=== PATIENT | female | born 1995 | race Caucasian/White ===

== ENCOUNTER 2018-12-12 15:44 | Emergency (ER) | payer OTHER ==
--- NOTE | 2018-12-12 16:47 | ED Physician Documentation ---
PD HPI URI - Stated complaint Stated Complaint: FLU SYMPTOMS - Chief complaint Chief Complaint: Fever - History obtained from History obtained from: Patient, Family - History of Present Illness Timing - onset: How many days ago (3) Timing duration: Days (3) Timing details: Gradual onset Pain level max: 4 Pain level now: 3 Associated symptoms: Fever, Chills, Nasal congestion, Rhinorrhea, Dry cough, Chest pain (with coughing). No: Dyspnea, NVD Contributing factors: Sick contact. No: Immunocompromised, Unimmunized, COPD / asthma Improves by: Rest, Medication (motrin/tylenol) Worsened by: Activity, Breathing Similar symptoms before: Has not had sx before Recently seen: Not recently seen Review of Systems Constitutional: reports: Fever, Chills Respiratory: reports: Cough GI: denies: Vomiting : denies: Now EGA PD PAST MEDICAL HISTORY - Past Medical History Past Medical History: No - Past Surgical History Past Surgical History: No - Present Medications Home Medications: Ambulatory Orders Medication Instructions Recorded Confirmed Benzonatate [Tessalon Perle] 100 - 200 mg PO TID PRN #30 capsule 12/12/18 Ibuprofen [Motrin] 800 mg PO Q8H PRN #30 tablet 12/12/18 - Allergies Allergies/Adverse Reactions: Allergies Allergy/AdvReac Type Severity Reaction Status Date / Time No Known Drug Allergies Allergy Verified 12/12/18 16:09 - Living Situation Living Situation: reports: With family Living Arrangement: reports: At home - Social History Does the pt smoke?: No Does the pt drink ETOH?: No Does the pt have substance abuse?: No - Family History Family history: reports: Non contributory PD ED PE NORMAL - Vitals Vital signs reviewed: Yes - General General: Alert and oriented X 3, No acute distress, Well developed/nourished - HEENT HEENT: PERRL, Ears normal, Moist mucous membranes, Pharynx benign - Neck Neck: Supple, no meningeal sign, No adenopathy - Cardiac Cardiac: RRR, Strong equal pulses - Respiratory Respiratory: No respiratory distress, Clear bilaterally - Abdomen Abdomen: Soft, Non tender, Non distended - Derm Derm: Warm and dry - Neuro Neuro: Alert and oriented X 3 - Psych Psych: Normal mood, Normal affect Results - Vitals Vitals: Vital Signs - 24 hr 12/12/18 12/12/18 16:07 16:51 Temperature 38.1 C H 38.2 C H Heart Rate 127 H Respiratory 14 20 Rate Blood Pressure 140/89 H 132/90 H O2 Saturation 96 Oxygen O2 Source Room air PD MEDICAL DECISION MAKING - ED course Complexity details: considered differential, d/w patient ED course: 22-year-old female presents to the emergency department with symptoms consistent with influenza which is currently rampant in the community. She is very well- appearing, nontoxic. No hypoxia. No evidence of pneumonia. No evidence of sepsis. Patient counseled regarding signs and symptoms for which I believe and urgent re-evaluation would be necessary. Patient with good understanding of and agreement to plan and is comfortable going home at this time This document was made in part using voice recognition software. While efforts are made to proofread this document, sound alike and grammatical errors may occur. Departure - Departure Disposition: 01 Home, Self Care Clinical Impression: Influenza A Condition: Good Instructions: ED Flu Follow-Up: your,doctor in 1 week [Other] Prescriptions: Benzonatate [Tessalon Perle] 100 - 200 mg PO TID PRN #30 capsule PRN Reason: Cough Ibuprofen [Motrin] 800 mg PO Q8H PRN #30 tablet PRN Reason: PAIN &/OR FEVER Comments: Drink plenty of fluids and rest. Return if you worsen. Follow-up with your doctor for further care. Forms: Activity restrictions Discharge Date/Time: 12/12/18 16:55
[2018-12-12 16:53] VITALS: BP 132/90
== END 2018-12-12 16:55 | disposition home or self-care (01) ==
LOC: ED 15:44
DX: J10.1 Influenza due to other identified influenza virus with other respiratory manifestations (principal)
CPT/HCPCS: 99283

== ENCOUNTER 2021-02-14 12:16 | Emergency (ER) | payer OTHER ==
--- NOTE | 2021-02-14 13:29 | ED Physician Documentation ---
PD HPI HEENT - Stated complaint Stated Complaint: ear px - Chief complaint Chief Complaint: Heent - History obtained from History obtained from: Patient - History of Present Illness Timing - onset: How many weeks ago (2) Timing - duration: Weeks (2) Timing - details: Gradual onset, Still present, Waxing and waning (becoming more consistent with diminished hearing since yesterday.) Location: Right ear, Left ear. No: Nose Associated symptoms: No: Fever, Congestion, Headache Similar symptoms before: Diagnosis (earwax impaction at times in the past.) Review of Systems Constitutional: denies: Fever, Chills Ears: reports: Loss of hearing (mostly the left one), Ear pain. denies: Tinnitus/ringing, Foreign body Nose: denies: Rhinorrhea / runny nose, Congestion Throat: denies: Sore throat Respiratory: denies: Cough Skin: denies: Rash, Lesions Neurologic: reports: Other (no vertigo). 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 : None HEENT: None Psych: None Musculoskeletal: None Derm: None - Past Surgical History Past Surgical History: Yes General: Appendectomy Ortho: Other Neuro: Craniotomy HEENT: Other - Present Medications Home Medications: Ambulatory Orders Medication Instructions Recorded Confirmed Cetirizine [ZyrTEC] 10 mg PO BID #20 tablet 02/14/21 Neomycin/Polymyx/Hc Otic Drops 4 drops EACHEAR TID 4 Days #10 ml 02/14/21 [Cortisporin Ear Susp] - Allergies Allergies/Adverse Reactions: Allergies Allergy/AdvReac Type Severity Reaction Status Date / Time No Known Drug Allergies Allergy Verified 02/14/21 12:29 - Social History Does the pt smoke?: Yes Smoking Status: Current every day smoker Does the pt drink ETOH?: Yes Does the pt have substance abuse?: No - Immunizations Immunizations are current?: Yes PD ED PE NORMAL - Vitals Vital signs reviewed: Yes - General General: Alert and oriented X 3, No acute distress, Well developed/nourished - HEENT HEENT: Pharynx benign, Other (both ears with impacted cerumen, not being able to see any of the TM. ) - Neck Neck: Supple, no meningeal sign, No adenopathy - Cardiac Cardiac: RRR, No murmur - Respiratory Respiratory: Clear bilaterally - Derm Derm: Normal color, Warm and dry Results - Vitals Vitals: Vital Signs - 24 hr 02/14/21 02/14/21 02/14/21 12:25 15:11 15:23 Temperature 37.1 C 36.4 C L 36.6 C Heart Rate 99 77 75 Respiratory 20 17 16 Rate Blood Pressure 142/81 H 131/88 H 130/75 O2 Saturation 97 100 100 Oxygen O2 Source Room air PD MEDICAL DECISION MAKING - ED course Complexity details: re-evaluated patient (checked after cerumen irrigated out, and medial canal both sides with redness/rawness. TM themselves without infection behind. ), considered differential (impacted cerumen, and I did currette some of it out/looser, so flushing more effective. ), d/w patient Departure - Departure Disposition: 01 Home, Self Care Clinical Impression: Cerumen impaction Qualifiers: Laterality: bilateral Qualified Code(s): H61.23 - Impacted cerumen, bilateral Otitis externa Qualifiers: Otitis externa type: unspecified type Chronicity: acute Laterality: bilateral Qualified Code(s): H60.503 - Unspecified acute noninfective otitis externa, bilateral Condition: Stable Record reviewed to determine appropriate education?: Yes Instructions: ED Otitis Externa Prescriptions: Neomycin/Polymyx/Hc Otic Drops [Cortisporin Ear Susp] 4 drops EACHEAR TID 4 Days #10 ml Cetirizine [ZyrTEC] 10 mg PO BID #20 tablet Comments: Earwax is out of your ears and has created irritation of the ear canal behind it. Use the antibiotic eardrops 3 times a day over the next several days to clear that. Also use cetirizine antihistamine twice daily for the next 7 to 10 days for congestion. Tylenol every 4-6 hours if needed for pains. I would anticipate improvement over the next day or 2. Discharge Date/Time: 02/14/21 15:24
[2021-02-14] MEDS ORDERED: ACETAMINOPHEN 325 MG TABLET PO STA (13:45)
[2021-02-14 15:24] VITALS: BP 130/75
== END 2021-02-14 15:24 | disposition home or self-care (01) ==
LOC: ED 12:16
DX: H60.503 Unspecified acute noninfective otitis externa, bilateral (principal); H61.23 Impacted cerumen, bilateral; F17.200 Nicotine dependence, unspecified, uncomplicated
CPT/HCPCS: 69210; 99282; 99284; A9270

== ENCOUNTER 2021-04-21 13:10 | Outpatient (CLI) | payer MEDICAID ==
[2021-04-21 17:43] LABS: BASOPHILS % (AUTO) 0.4 %; EOSINOPHILS # (AUTO) 0.3 10^3/uL (0.0-0.7); HCT - HEMATOCRIT 40.4 % (37.0-47.0); HGB - HEMOGLOBIN 12.7 g/dL (12.0-16.0); LYMPHOCYTES % (AUTO) 26.1 %; MEAN CORPUSCULAR HEMOGLOBIN 29.6 pg (27.0-31.0); MEAN CORPUSCULAR HGB CONC 31.4 g/dL (32.0-36.0); MEAN CORPUSCULAR VOLUME 94.2 fL (81.0-99.0); MEAN PLATELET VOLUME 11.5 fL (7.9-10.8); MONOCYTES # (AUTO) 0.4 10^3/uL (0.0-1.0); MONOCYTES % (AUTO) 5.7 %; NEUTROPHILS # (AUTO) 4.9 10^3/uL (1.5-6.6); NEUTROPHILS % (AUTO) 63.7 %; PLT - PLATELET COUNT 301 10^3/uL (130-450); RED BLOOD COUNT 4.29 10^6/uL (4.20-5.40); RED CELL DISTRIBUTION WIDTH 12.6 % (12.0-15.0); WHITE BLOOD COUNT 7.7 x10^3/uL (4.8-10.8)
[2021-04-21 17:55] LABS: ALBUMIN 4.2 g/dL (3.2-5.5); ALBUMIN/GLOBULIN RATIO 1.2 (1.0-2.2); BILIRUBIN,TOTAL 0.7 mg/dL (0.2-1.0); CALCIUM 9.3 mg/dL (8.5-10.3); CREATININE 0.6 mg/dL (0.4-1.0); TOTAL PROTEIN 7.6 g/dL (6.7-8.2)
== END 2021-04-21 13:11 | disposition home or self-care (01) ==
LOC: LAB.N 13:10
PROVIDERS: ATTEND Registered Nurse
DX: R63.5 Abnormal weight gain (principal); Z83.3 Family history of diabetes mellitus
CPT/HCPCS: 36415; 80053; 84443; 85025

== ENCOUNTER 2021-07-22 17:08 | Emergency (ER) | payer MEDICAID ==
[2021-07-22 17:30] VITALS: BP 132/88
--- NOTE | 2021-07-22 17:57 | ED Physician Documentation ---
PD HPI URI - Stated complaint Stated Complaint: COUGH,SORE THROAT - Chief complaint Chief Complaint: Resp - History obtained from History obtained from: Patient - Additional information Additional information: 25-year-old female who presented with 3 days of cough and sore throat. She has missed a several days of work in states she needs a note in order to explain her absence. She is not vaccinated for Covid, no known sick contacts. She has not had a fever, chills, chest pain or dyspnea, abdominal pain, nausea vomiting or diarrhea. Taking [id number] cough and cold medicine with some relief. 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 HEENT: None Psych: None Musculoskeletal: None Derm: None - Past Surgical History Past Surgical History: Yes General: Appendectomy Ortho: Other Neuro: Craniotomy HEENT: Other - Present Medications Home Medications: Ambulatory Orders Medication Instructions Recorded Confirmed Amoxicillin 1,000 mg PO DAILY 10 Days #20 cap 07/22/21 - Allergies Allergies/Adverse Reactions: Allergies Allergy/AdvReac Type Severity Reaction Status Date / Time No Known Drug Allergies Allergy Verified 07/22/21 17:28 - Social History Does the pt smoke?: Yes Smoking Status: Current every day smoker Does the pt drink ETOH?: Yes Does the pt have substance abuse?: No - Immunizations Immunizations are current?: Yes PD ED PE NORMAL - Vitals Vital signs reviewed: Yes - General General: Alert and oriented X 3, No acute distress, Well developed/nourished - HEENT HEENT: Atraumatic, Ears normal, Moist mucous membranes, Pharynx benign, Other (Throat is slightly red, tonsils 1+ bilateral uvula midline no exudate) - Neck Neck: Supple, no meningeal sign, No JVD - Cardiac Cardiac: RRR, No murmur - Respiratory Respiratory: No respiratory distress, Clear bilaterally - Abdomen Abdomen: Normal bowel sounds, Soft, Non tender, Non distended - Derm Derm: Normal color, Warm and dry - Extremities Extremities: No deformity, No tenderness to palpate, Normal ROM s pain - Neuro Neuro: Alert and oriented X 3 Eye Opening: Spontaneous Motor: Obeys Commands Verbal: Oriented GCS Score: 15 - Psych Psych: Normal mood, Normal affect Results - Vitals Vitals: Vital Signs - 24 hr 07/22/21 17:26 Temperature 36.6 C Heart Rate 95 Respiratory 16 Rate Blood Pressure 132/88 H O2 Saturation 96 Oxygen O2 Source Room air - Labs Labs: Laboratory Tests 07/22/21 18:18 Group A Strep Rapid POSITIVE H PD MEDICAL DECISION MAKING - ED course Complexity details: reviewed results, d/w patient ED course: 25-year-old female who presented with Throat, her strep test was positive and amoxicillin was sent in to [facility] in [place] for the patient. I reviewed supportive measures including Tylenol, ibuprofen, staying well-hydrated. Patient stay home from work for 24 hours after starting antibiotics. We did obtain a Covid test as well which is still pending, patient will be notified of the results in 24 to 48 hours. Departure - Departure Disposition: 01 Home, Self Care Clinical Impression: Strep throat Condition: Good Instructions: ED Viral Syndrome Prescriptions: Amoxicillin 1,000 mg PO DAILY 10 Days #20 cap Forms: Activity restrictions Discharge Date/Time: 07/22/21 18:38
[2021-07-22 18:35] LABS: RAPID STREP SCREEN POSITIVE (Negative)
== END 2021-07-22 18:38 | disposition home or self-care (01) ==
LOC: ED 17:08
DX: J02.0 Streptococcal pharyngitis (principal); F17.200 Nicotine dependence, unspecified, uncomplicated; Z20.822 Contact with and (suspected) exposure to COVID-19
CPT/HCPCS: 87430; 99283; 99284

== ENCOUNTER 2022-03-01 17:19 | Emergency (ER) | payer BC, MEDICAID ==
[2022-03-01] MEDS ORDERED: SODIUM CHLORIDE 0.9% 1,000 ML IV STA (18:12)
--- NOTE | 2022-03-01 19:01 | ED Physician Documentation ---
History of Present Illness - Stated complaint Stated Complaint: RUNNY NOSE,CHILLS,SORE THROAT - Chief complaint Chief Complaint: General - History obtained from History obtained from: Patient - Additonal information Additional information: The patient comes to the emergency department chief complaint of fevers, chills, sore throat, cough, and fatigue over the last couple of days. She is also had a headache. She states her temperatures were measured orally and as high as 102 today. She has not had any sick contacts that she knows of. She is not COVID vaccinated. Patient denies any nausea or vomiting. No diarrhea. No dysuria. No shortness of breath. No other complaints at this time. Review of Systems Ten Systems: 10 systems reviewed and negative Constitutional: reports: Fever, Chills, Fatigue Eyes: reports: Reviewed and negative Ears: reports: Reviewed and negative Nose: reports: Rhinorrhea / runny nose, Congestion Throat: reports: Sore throat Cardiac: reports: Reviewed and negative Respiratory: reports: Cough GI: reports: Reviewed and negative : reports: Reviewed and negative Skin: reports: Reviewed and negative Musculoskeletal: reports: Reviewed and negative Neurologic: reports: Headache Psychiatric: reports: Reviewed and negative Endocrine: reports: Reviewed and negative Immunocompromised: reports: Reviewed and negative PD PAST MEDICAL HISTORY - Past Medical History Past Medical History: Yes Cardiovascular: None Respiratory: None Neuro: None Endocrine/Autoimmune: None 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 HEENT: None Psych: None Musculoskeletal: None Derm: None - Past Surgical History Past Surgical History: Yes General: Appendectomy Ortho: Other Neuro: Craniotomy HEENT: Other - Present Medications Home Medications: Ambulatory Orders Medication Instructions Recorded Confirmed No Known Home Medications 03/01/22 03/01/22 - Allergies Allergies/Adverse Reactions: Allergies Allergy/AdvReac Type Severity Reaction Status Date / Time No Known Drug Allergies Allergy Verified 03/01/22 17:24 - Social History Does the pt smoke?: Yes Smoking Status: Current every day smoker Does the pt drink ETOH?: Yes Does the pt have substance abuse?: No - Immunizations Immunizations are current?: Yes PD ED PE NORMAL - Vitals Vital signs reviewed: Yes - General General: Alert and oriented X 3, No acute distress, Well developed/nourished - HEENT HEENT: Atraumatic, PERRL, EOMI, Moist mucous membranes, Pharynx benign - Neck Neck: Supple, no meningeal sign - Cardiac Cardiac: RRR, No murmur, Strong equal pulses - Respiratory Respiratory: No respiratory distress, Clear bilaterally - Abdomen Abdomen: Soft, Non tender, Non distended - Derm Derm: Normal color, Warm and dry, No rash - Extremities Extremities: No deformity - Neuro Neuro: Alert and oriented X 3, 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 At this point in time, she is pending finishing her IV fluids and the results of the PCR panel. She is signed out to Dr. Solano at change of shift pending final disposition. Departure - Departure Clinical Impression: Viral syndrome Condition: Stable Instructions: ED Viral Syndrome
[2022-03-01 19:17] LABS: CORONAVIRUS 229E-RESP PCR NOT DETECTED; CORONAVIRUS HKU1-RESP PCR NOT DETECTED; CORONAVIRUS NL63-RESP PCR NOT DETECTED; CORONAVIRUS OC43-RESP PCR DETECTED
[2022-03-01 19:18] LABS: B. PARAPERTUSSIS- RESP PCR PAN NOT DETECTED; B. PERTUSSIS- RESP PCR PANEL NOT DETECTED; C. PNEUMONIAE- RESP PCR PANEL NOT DETECTED; HUMAN METAPNEUMOVIRUS NOT DETECTED; INFLUENZA A- RESP PCR PANEL NOT DETECTED; INFLUENZA B - RESP PCR PANEL NOT DETECTED; M. PNEUMONIAE- RESP PCR PANEL NOT DETECTED; PARAINFLUENZA VIRUS 1 NOT DETECTED; PARAINFLUENZA VIRUS 2 NOT DETECTED; PARAINFLUENZA VIRUS 3 NOT DETECTED; PARAINFLUENZA VIRUS 4 NOT DETECTED; RHINOVIRUS/ENTEROVIRUS NOT DETECTED; RSV- RESP PCR PANEL NOT DETECTED; SARS-CoV-2 -RESP PCR PANEL NOT DETECTED
[2022-03-01 20:07] VITALS: BP 151/98
== END 2022-03-01 20:11 | disposition home or self-care (01) ==
LOC: ED 17:19
DX: B34.9 Viral infection, unspecified (principal); F17.200 Nicotine dependence, unspecified, uncomplicated; Z20.822 Contact with and (suspected) exposure to COVID-19
CPT/HCPCS: 87633; 99282; 99283

== ENCOUNTER 2022-04-04 09:28 | Emergency (ER) | payer BC ==
--- NOTE | 2022-04-04 10:05 | ED Physician Documentation ---
History of Present Illness - Stated complaint Stated Complaint: CHILLS,FEVER - Chief complaint Chief Complaint: Fever - History obtained from History obtained from: Patient - Additonal information Additional information: The patient comes to the emergency department chief complaint of fever. She states she was not feeling very well yesterday and felt as though her stomach was churning. She was at work and then noticed that her head was pounding And she had body aches. Patient states she came home and took her temperature which came throughout 103. She was in front of the heater at that time and also just taken a hot shower. She went to bed and states that her head hurt all night and that this morning, she had a temperature of 101. She did not take any ibuprofen or Tylenol for this. The patient states that her stomach feels better today. Her headache is a little better now she is afebrile here. Patient does not know of any sick contacts but states this is her third time being sick with something this year. She states she has not had COVID. The patient has a roommate who has not been sick. No sore throat. Minimal cough. No dysuria or back pain. No vomiting or diarrhea. No abdominal pain. Review of Systems Ten Systems: 10 systems reviewed and negative Constitutional: reports: Fever, Myalgias Eyes: reports: Reviewed and negative Ears: reports: Reviewed and negative Nose: reports: Reviewed and negative Throat: reports: Reviewed and negative Cardiac: reports: Reviewed and negative Respiratory: reports: Reviewed and negative GI: reports: Nausea (Now resolved) : reports: Reviewed and negative Skin: reports: Reviewed and negative Musculoskeletal: reports: Reviewed and negative Neurologic: reports: Reviewed and negative Psychiatric: reports: Reviewed and negative Endocrine: reports: Reviewed and negative Immunocompromised: reports: Reviewed and negative PD PAST MEDICAL HISTORY - Past Medical History Cardiovascular: None Respiratory: None Neuro: None Endocrine/Autoimmune: None GI: None 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 : None HEENT: None Psych: None Musculoskeletal: None Derm: None - Past Surgical History Past Surgical History: Yes General: Appendectomy Ortho: Other Neuro: Craniotomy HEENT: Other - Present Medications Home Medications: Ambulatory Orders Medication Instructions Recorded Confirmed No Known Home Medications 03/01/22 04/04/22 - Allergies Allergies/Adverse Reactions: Allergies Allergy/AdvReac Type Severity Reaction Status Date / Time No Known Drug Allergies Allergy Verified 04/04/22 09:47 - Social History Does the pt smoke?: Yes Smoking Status: Current every day smoker Does the pt drink ETOH?: Yes Does the pt have substance abuse?: No - Immunizations Immunizations are current?: Yes PD ED PE NORMAL - Vitals Vital signs reviewed: Yes - General General: Alert and oriented X 3, No acute distress, Well developed/nourished, Other (The patient is animated and well-appearing) - HEENT HEENT: Atraumatic, PERRL, EOMI, Moist mucous membranes, Pharynx benign - Neck Neck: Supple, no meningeal sign, No adenopathy - Cardiac Cardiac: RRR, No murmur, Strong equal pulses - Respiratory Respiratory: No respiratory distress, Clear bilaterally - Abdomen Abdomen: Soft, Non tender, Non distended - Derm Derm: Normal color, Warm and dry, No rash - Extremities Extremities: No deformity - Neuro Neuro: Alert and oriented X 3 - Psych Psych: Normal mood, Normal affect Results - Vitals Vitals: Vital Signs - 24 hr 04/04/22 09:37 Temperature 36.9 C Heart Rate 97 Respiratory 18 Rate Blood Pressure 131/80 H O2 Saturation 99 Oxygen O2 Source Room air PD MEDICAL DECISION MAKING - ED course Complexity details: reviewed results, considered differential, d/w patient ED course: Patient overall appeared fairly well and I discussed with her that most likely, she has one of the many viral illnesses that are going around right now. I have sent a viral swab and patient will be notified at home if positive. We have discussed symptomatic management at home and the usual indications for return Departure - Departure Disposition: 01 Home, Self Care Clinical Impression: Viral syndrome, Febrile illness, acute Condition: Stable Instructions: ED Viral Syndrome Comments: You do not have any evidence of a bacterial infection. Given that you measured a fever both last night and this morning, in addition to the other symptoms you have been having, you most likely have one of the many viruses that are going around right now. A viral panel has been sent and will be back in a few hours. We will call you at home with any positive results. However, if you would like to monitor for negative results, you may go to our website at [email or web address], click on the "my [employer]" tab, and sign up for the patient portal. In the meantime, you may take ibuprofen 600 mg every 6 hours and or Tylenol 650 mg every Headache4 hours, as needed for, aches, or fever. Ibuprofen and Tylenol are unrelated and may be taken at the same time. Please drink plenty of fluids and get rest today. Please follow-up with your doctor if you are not feeling better in the next week.
[2022-04-04 10:15] VITALS: BP 125/75
[2022-04-04 11:29] LABS: B. PARAPERTUSSIS- RESP PCR PAN NOT DETECTED; B. PERTUSSIS- RESP PCR PANEL NOT DETECTED; C. PNEUMONIAE- RESP PCR PANEL NOT DETECTED; CORONAVIRUS 229E-RESP PCR NOT DETECTED; CORONAVIRUS HKU1-RESP PCR NOT DETECTED; CORONAVIRUS NL63-RESP PCR NOT DETECTED; CORONAVIRUS OC43-RESP PCR NOT DETECTED; HUMAN METAPNEUMOVIRUS NOT DETECTED; INFLUENZA A- RESP PCR PANEL NOT DETECTED; INFLUENZA B - RESP PCR PANEL NOT DETECTED; M. PNEUMONIAE- RESP PCR PANEL NOT DETECTED; PARAINFLUENZA VIRUS 1 NOT DETECTED; PARAINFLUENZA VIRUS 2 NOT DETECTED; PARAINFLUENZA VIRUS 3 NOT DETECTED; PARAINFLUENZA VIRUS 4 NOT DETECTED; RHINOVIRUS/ENTEROVIRUS NOT DETECTED; RSV- RESP PCR PANEL NOT DETECTED
[2022-04-04 11:32] LABS: SARS-CoV-2 -RESP PCR PANEL DETECTED
== END 2022-04-04 10:17 | disposition home or self-care (01) ==
LOC: ED 09:28
DX: F17.200 Nicotine dependence, unspecified, uncomplicated (principal); U07.1 COVID-19
CPT/HCPCS: 87633; 99282; 99283

== ENCOUNTER 2023-10-05 13:25 | Emergency (ER) | payer BC ==
[2023-10-05 13:32] VITALS: BP 140/90; O2SAT 100
--- NOTE | 2023-10-05 14:23 | ED Physician Documentation ---
PD HPI HEENT - Stated complaint Stated Complaint: LT EAR PX - Chief complaint Chief Complaint: Heent - History obtained from History obtained from: Patient - History of Present Illness Timing - onset: How many days ago (2) Timing - duration: Days (2) Timing - details: Gradual onset, Still present Location: Left ear Improves: Other (she thought maybe wax impaction so used ear wax hat cleaner without improvement.). No: Medication Worsens: Position Associated symptoms: Congestion. No: Fever, Headache Review of Systems Constitutional: denies: Fever Ears: reports: Loss of hearing, Ear pain. 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 HEENT: None Psych: None Musculoskeletal: None Derm: None - Past Surgical History Past Surgical History: Yes General: Appendectomy Ortho: Other Neuro: Craniotomy HEENT: Other - Present Medications Home Medications: Ambulatory Orders Medication Instructions Recorded Confirmed Amoxicillin 500 mg PO TID #21 cap 10/05/23 Cetirizine [ZyrTEC] 10 mg PO BID #15 tablet 10/05/23 Ibuprofen [Motrin] 600 mg PO TID PRN #25 tab 10/05/23 - Allergies Allergies/Adverse Reactions: Allergies Allergy/AdvReac Type Severity Reaction Status Date / Time No Known Drug Allergies Allergy Verified 10/05/23 13:28 - Social History Does the pt smoke?: Yes Smoking Status: Current every day smoker Does the pt drink ETOH?: Yes Does the pt have substance abuse?: No - Immunizations Immunizations are current?: Yes PD ED PE NORMAL - Vitals Vital signs reviewed: Yes - General General: Alert and oriented X 3, Well developed/nourished - HEENT HEENT: Moist mucous membranes, Pharynx benign. No: Ears normal (right with some wax in canal but TM is okay. Left with nearly no wax. Canal appears okay. TM with redness, swelling and distorted landmarks. ) Results - Vitals Vitals: Vital Signs - 24 hr 10/05/23 13:29 Temperature 36.5 C Heart Rate 80 Respiratory 16 Rate Blood Pressure 140/90 H O2 Saturation 100 Oxygen O2 Source Room air PD Medical Decision Making - ED course Complexity details: considered differential (ear pain and less hearing. Canal is clear of wax. TM with OM. ), d/w patient Departure - Departure Disposition: 01 Home, Self Care Clinical Impression: Left ear pain, Otitis media Condition: Stable Record reviewed to determine appropriate education?: Yes Instructions: ED Otitis Media Acute Adult Prescriptions: Amoxicillin 500 mg PO TID #21 cap Ibuprofen [Motrin] 600 mg PO TID PRN #25 tab PRN Reason: Pain Cetirizine [ZyrTEC] 10 mg PO BID #15 tablet Comments: Your ear canal has essentially no earwax in it. You have done a good job of clearing it out. However I do not think that was what was causing your pain. You do have an ear infection with redness and swelling and fluid behind the eardrum. This would have resulted more from the head cold you have been having recently. Amoxicillin 3 times a day for the next week. Ibuprofen 2-3 times a day for pain and inflammation. We also want to get the fluid out from the eustachian tube and sinuses so cetirizine twice daily for the next week. I would anticipate improvement over the next few days and resolution by 3 to 5 days. I sent your prescriptions to preferred pharmacy. Recheck if not improving well over the next few days and return if worse. Forms: PCP List Discharge Date/Time: 10/05/23 14:54
[2023-10-05] MEDS ORDERED: IBUPROFEN 600 MG TABLET PO STA (14:46)
[2023-10-05] MEDS ORDERED: AMOXICILLIN 250 MG CAPSULE PO STA (14:46)
== END 2023-10-05 14:54 | disposition home or self-care (01) ==
LOC: ED 13:25
DX: H66.92 Otitis media, unspecified, left ear (principal); F17.200 Nicotine dependence, unspecified, uncomplicated
CPT/HCPCS: 99282; 99283; A9270

== ENCOUNTER 2024-05-03 09:10 | Inpatient (IN) | payer BC ==
[2024-05-03 09:37] LABS: BASOPHILS # (AUTO) 0.1 10^3/uL (0.0-0.1); EOSINOPHILS % (AUTO) 0.2 %; HCT - HEMATOCRIT 41.6 % (37.0-47.0); LYMPHOCYTES # (AUTO) 1.3 10^3/uL (1.5-3.5); LYMPHOCYTES % (AUTO) 22.3 %; MEAN CORPUSCULAR HEMOGLOBIN 25.8 pg (27.0-31.0); MEAN CORPUSCULAR HGB CONC 31.3 g/dL (32.0-36.0); MEAN CORPUSCULAR VOLUME 82.7 fL (81.0-99.0); MEAN PLATELET VOLUME 10.4 fL (7.9-10.8); MONOCYTES # (AUTO) 0.4 10^3/uL (0.0-1.0); MONOCYTES % (AUTO) 6.1 %; NEUTROPHILS # (AUTO) 4.1 10^3/uL (1.5-6.6); NEUTROPHILS % (AUTO) 69.9 %; PLT - PLATELET COUNT 336 10^3/uL (130-450); RED BLOOD COUNT 5.03 10^6/uL (4.20-5.40); RED CELL DISTRIBUTION WIDTH 15.6 % (12.0-15.0); WHITE BLOOD COUNT 5.9 x10^3/uL (4.8-10.8)
[2024-05-03 09:47] LABS: BILIRUBIN,URINE SMALL (NEGATIVE); GLUCOSE, URINE (UA) NEGATIVE (NEGATIVE); KETONES,URINE (UA) TRACE mg/dL (NEGATIVE); LEUKOCYTE ESTERASE, URINE NEGATIVE (NEGATIVE); NITRITE,URINE NEGATIVE (NEGATIVE); OCCULT BLOOD,URINE LARGE (NEGATIVE); PROTEIN,URINE 30 mg/dL (NEGATIVE); UROBILINOGEN,URINE 1 (NORMAL) E.U./dL (NORMAL)
[2024-05-03 09:51] LABS: CLARITY,URINE CLEAR (CLEAR); HCG UR QUAL NEGATIVE
[2024-05-03 09:52] LABS: ALBUMIN 4.6 g/dL (3.2-5.5); ALBUMIN/GLOBULIN RATIO 1.5 (1.0-2.2); ALKALINE PHOSPHATASE 63 IU/L (42-121); ALT ALANINE AMINOTRANSFERASE 165 IU/L (10-60); AST ASPARTATE AMINOTRANSFERASE 226 IU/L (10-42); BILIRUBIN,TOTAL 0.9 mg/dL (0.2-1.0); BUN - BLOOD UREA NITROGEN 7 mg/dL (6-20); CALCIUM 9.9 mg/dL (8.5-10.3); CARBON DIOXIDE - CO2 27 mmol/L (21-32); CHLORIDE 97 mmol/L (101-111); CREATININE 0.7 mg/dL (0.6-1.3); ETOH - ETHANOL 10.4 mg/dL; GFR - MDRD 98 (>89); GLUCOSE 188 mg/dL (74-104); LIPASE 22 U/L (11-82); MAGNESIUM 1.4 mg/dL (1.7-2.3); POTASSIUM 2.9 mmol/L (3.5-4.5); SODIUM 133 mmol/L (135-145); TOTAL PROTEIN 7.6 g/dL (6.4-8.9)
[2024-05-03 09:56] LABS: PARTIAL THROMBOPLASTIN TIME 26.2 secs (24.9-33.3)
[2024-05-03 09:57] LABS: BACTERIA,URINE Many /HPF (None Seen); RBC,URINE TNTC /HPF (0-5); SQUAMOUS EPITHELIAL CELL,UR MANY Squamous (<= Few); WBC,URINE 0-3 /HPF (0-5)
[2024-05-03 10:01] LABS: INR 1.4 (0.8-1.2); PT - PROTHROMBIN TIME 14.9 secs (9.9-12.6)
[2024-05-03 10:02] LABS: ACETAMINOPHEN 60.8 ug/mL; SALICYLATE < 1.5 mg/dL
[2024-05-03 10:07] LABS: THYROID STIMULATING HORMONE 1.15 uIU/mL (0.34-5.60)
[2024-05-03 10:20] LABS: AMPHETAMINE SCREEN,URINE NEGATIVE (NEGATIVE); BARBITURATE SCREEN,UR NEGATIVE (NEGATIVE); BENZODIAZEPINES SCREEN, URINE POSITIVE (NEGATIVE); BUPRENORPHINE SCREEN, URINE NEGATIVE (NEGATIVE); COCAINE SCREEN URINE NEGATIVE (NEGATIVE); METHADONE SCREEN, URINE NEGATIVE (NEGATIVE); METHAMPHETAMINES SCREEN, URINE NEGATIVE (NEGATIVE); OPIATE SCREEN, URINE NEGATIVE (NEGATIVE); OXYCODONE SCREEN, URINE NEGATIVE (NEGATIVE); THC CANNABINOID SCREEN, URINE NEGATIVE (NEGATIVE); TRICYCLIC ANTIDEPRESSANT,URINE NEGATIVE (NEGATIVE)
[2024-05-03] MEDS: ACETYLCYSTEINE IV STA (10:24)
[2024-05-03] MEDS: DEXTROSE 5% IV STA (10:24)
--- NOTE | 2024-05-03 10:43 | ED Physician Documentation ---
PD HPI MHE - Stated complaint Stated Complaint: SI - Chief complaint Chief Complaint: MHE - History obtained from History obtained from: Patient - History of Present Illness Primary symptom: Suicide attempt Timing - onset: Last night (2099) Contributing factors: Work Recently seen: Not recently seen - Additional information Additional information: 28-year-old female presents to the emergency department stating she has had increasing anxiety and and was feeling suicidal last night. She states she decided to take a bottle of Tylenol, 500 mg. Unknown how many tabs. This was at 9 PM last night. This morning she decided to come in for help. She has never attempted suicide before. She states she does not feel suicidal currently. 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 : None HEENT: None Psych: Anxiety Musculoskeletal: None Derm: None - Past Surgical History Past Surgical History: Yes General: Appendectomy Ortho: Other Neuro: Craniotomy HEENT: Other - Present Medications Home Medications: Ambulatory Orders Medication Instructions Recorded Confirmed Amoxicillin 500 mg PO TID #21 cap 10/05/23 Cetirizine [ZyrTEC] 10 mg PO BID #15 tablet 10/05/23 Ibuprofen [Motrin] 600 mg PO TID PRN #25 tab 10/05/23 - Allergies Allergies/Adverse Reactions: Allergies Allergy/AdvReac Type Severity Reaction Status Date / Time No Known Drug Allergies Allergy Verified 05/03/24 09:16 - Social History Does the pt smoke?: Yes Smoking Status: Current every day smoker Does the pt drink ETOH?: Yes Does the pt have substance abuse?: No - Immunizations Immunizations are current?: Yes PD ED PE NORMAL - Vitals Vital signs reviewed: Yes - General General: Alert and oriented X 3, No acute distress - HEENT HEENT: Moist mucous membranes - Neck Neck: Supple, no meningeal sign - Cardiac Cardiac: RRR, Strong equal pulses - Respiratory Respiratory: No respiratory distress, Clear bilaterally - Abdomen Abdomen: Soft, Non tender, Non distended - Derm Derm: Warm and dry - Extremities Extremities: No edema - Neuro Neuro: Alert and oriented X 3 - Psych Psych: Normal mood, Normal affect Results - Vitals Vitals: Vital Signs - 24 hr 05/03/24 09:16 Temperature 36.5 C Heart Rate 80 Respiratory 16 Rate Blood Pressure 150/110 H O2 Saturation 100 Oxygen O2 Source Room air - Labs Labs: Laboratory Tests 05/03/24 05/03/24 05/03/24 09:31 09:31 09:32 WBC 5.9 RBC 5.03 Hgb 13.0 Hct 41.6 MCV 82.7 MCH 25.8 L MCHC 31.3 L RDW 15.6 H Plt Count 336 MPV 10.4 Neut # (Auto) 4.1 Lymph # (Auto) 1.3 L Lipscomb # (Auto) 0.4 Eos # (Auto) 0.0 Baso # (Auto) 0.1 Absolute Nucleated RBC 0.00 Nucleated RBC % 0.0 PT INR APTT Sodium 133 L Potassium 2.9 L Chloride 97 L Carbon Dioxide 27 Anion Gap 9.0 BUN 7 Creatinine 0.7 Estimated GFR (MDRD) 98 Glucose 188 H Calcium 9.9 Magnesium 1.4 L Total Bilirubin 0.9 AST 226 H ALT 165 H Alkaline Phosphatase 63 Total Protein 7.6 Albumin 4.6 Globulin 3.0 Albumin/Globulin Ratio 1.5 Lipase 22 TSH 1.15 Urine Color Urine Clarity Urine pH Ur Specific He[place] Urine Protein Urine Glucose (UA) Urine Ketones Urine Occult Blood Urine Nitrite Urine Bilirubin Urine Urobilinogen Ur Leukocyte Esterase Urine RBC Urine WBC Ur Squamous Epith Cells Urine Bacteria Ur Microscopic Review Urine Culture Comments Urine HCG, Qual Salicylates < 1.5 Urine Opiates Screen Ur Buprenorphine Scrn Ur Oxycodone Screen Urine Methadone Screen Acetaminophen 60.8 H* Ur Barbiturates Screen Ur Tricyclics Screen Ur Phencyclidine Scrn Ur Amphetamine Screen U Methamphetamines Scrn U Benzodiazepines Scrn Urine Cocaine Screen U Cannabinoids Screen Ur Drug Screen Comment Ethyl Alcohol 10.4 SARS-CoV-2 (PCR) NOT DETECTED 05/03/24 05/03/24 09:36 09:43 WBC RBC Hgb Hct MCV MCH MCHC RDW Plt Count MPV Neut # (Auto) Lymph # (Auto) Lipscomb # (Auto) Eos # (Auto) Baso # (Auto) Absolute Nucleated RBC Nucleated RBC % PT 14.9 H INR 1.4 H APTT 26.2 Sodium Potassium Chloride Carbon Dioxide Anion Gap BUN Creatinine Estimated GFR (MDRD) Glucose Calcium Magnesium Total Bilirubin AST ALT Alkaline Phosphatase Total Protein Albumin Globulin Albumin/Globulin Ratio Lipase TSH Urine Color DARK YELLOW Urine Clarity CLEAR Urine pH 5.0 Ur Specific [place] 1.025 Urine Protein 30 H Urine Glucose (UA) NEGATIVE Urine Ketones TRACE Urine Occult Blood LARGE H Urine Nitrite NEGATIVE Urine Bilirubin SMALL H Urine Urobilinogen 1 (NORMAL) Ur Leukocyte Esterase NEGATIVE Urine RBC TNTC H Urine WBC 0-3 Ur Squamous Epith Cells MANY Squamous H Urine Bacteria Many H Ur Microscopic Review INDICATED Urine Culture Comments NOT INDICATED Urine HCG, Qual NEGATIVE Salicylates Urine Opiates Screen NEGATIVE Ur Buprenorphine Scrn NEGATIVE Ur Oxycodone Screen NEGATIVE Urine Methadone Screen NEGATIVE Acetaminophen Ur Barbiturates Screen NEGATIVE Ur Tricyclics Screen NEGATIVE Ur Phencyclidine Scrn NEGATIVE Ur Amphetamine Screen NEGATIVE U Methamphetamines Scrn NEGATIVE U Benzodiazepines Scrn POSITIVE H Urine Cocaine Screen NEGATIVE U Cannabinoids Screen NEGATIVE Ur Drug Screen Comment CUTOFF CONC BELOW: Ethyl Alcohol SARS-CoV-2 (PCR) PD Medical Decision Making - ED course Complexity details: reviewed results, re-evaluated patient, considered differential, d/w patient ED course: Patient is a 28-year-old female who presents to the emergency department stating that she took an overdose of acetaminophen last night. Acetaminophen level is over 60 today, approximately 13 hours postingestion. This puts her in the toxic dose of acetaminophen. She was immediately started on N-acetylcysteine. Discussed the case with poison control, they recommend continuing high-dose N- acetylcysteine for 24 hours, rechecking her LFTs and INR over the next 24 hours as well. The dosing for the N-acetylcysteine will be 20 mg/kg/hr. The patient will be admitted to the hospitalist for further care. I spoke with Dr. Thacker, hospitalist who accepts This document was made in part using voice recognition software. While efforts are made to proofread this document, sound alike and grammatical errors may occur. Departure - Departure Disposition: 66 [facility] DC/Xfer Clinical Impression: Elevated LFTs, Suicide attempt Intentional acetaminophen overdose Qualifiers: Encounter type: initial encounter Qualified Code(s): T39.1X2A - Poisoning by 4-Aminophenol derivatives, intentional self-harm, initial encounter Condition: Stable Forms: PCP List
[2024-05-03] MEDS: DEXTROSE 5% IV ONE (11:48)
[2024-05-03] MEDS: ACETYLCYSTEINE IV ONE (11:48)
[2024-05-03] MEDS: SODIUM CHLORIDE 0.9% 1,000 ML IV STA (12:10)
[2024-05-03] MEDS ORDERED: SODIUM CHLORIDE FLUSH 0.9% 10 ML SYRINGE IVP PRN (12:41)
[2024-05-03] MEDS: ONDANSETRON 4 MG/2 ML VIAL IVP PRN (14:51)
--- NOTE | 2024-05-03 15:24 | PHARMACY PROGRESS NOTE ---
- Best Possible Medication History Admit Date and Time: 05/03/24 1318 Processed by: Pharmacy Medication History completed: Yes Patient Interview: Completed Secondary Source(s): Insurance records (PT INTERVIEW) As the person ultimately responsible for medication therapy, providers are able to order a medication from an existing home medication list in [facility] via the "Reconcile Routine" prior to Confirmation of that medication by web support engineer. Such practice is discouraged except when the physician, in their clinical judgment, deems that a medical need exists for a medication without regard to previous use.
--- NOTE | 2024-05-03 15:30 | HISTORY & PHYSICAL EXAMINATION ---
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 She previously lived with her best friend Julita who then moved to [place]. Before that, she lived with her mom. She has never lived alone before and is finding it overwhelming. She reports difficulty feeding herself and often chooses to drink intead of eat when home. - Substance History Use: Uses substance without health or social issues: Alcohol (4-8 "Buzz balls" per day, a type of hard alcohol in a can. She states she starts drinking immediately upon getting home around 1 pm and stops around 7 pm.) Use Issues: Mood Disorder Abuse: Recurrent use of substance despite neg consequences: NONE Dependence: Experiences withdrawal or developed tolerances: Alcohol (Reports feeling anxious and shaky by 1 pm at the end of her shift and goes home to drink immediately) - POLST Patient has POLST: No Meds/Allgy - Home Medications Home Medications: Ambulatory Orders Medication Instructions Recorded Confirmed Acetaminophen [Tylenol] 2 tab PO QID PRN 05/03/24 05/03/24 Melatonin 2 mg PO HS PRN 05/03/24 05/03/24 guaiFENesin [Mucinex] 1 tab PO QID PRN 05/03/24 05/03/24 - Allergies Allergies/Adverse Reactions: Allergies Allergy/AdvReac Type Severity Reaction Status Date / Time No Known Drug Allergies Allergy Verified 05/03/24 09:16 Review of Systems - Constitutional Constitutional: reports: Poor appetite, Weight loss - Eyes Eyes: denies: Blurred vision - Ears, Nose & Throat Ears, Nose & Throat: denies: Ear pain, Tinnitus - Cardiovascular Cariovascular: denies: Palpitations, Chest pain - Respiratory Respiratory: denies: Cough - Gastrointestinal Gastrointestinal: reports: Vomiting (1-3x/day), Poor appetite. denies: Abdominal pain, Constipation, Diarrhea, Black stools, Bloody stools, Dereck blood emesis, Coffee grounds emesis - Genitourinary Genitourinary: denies: Dysuria, Frequency - Musculoskeletal Musculoskeletal: denies: Muscle pain, Joint pain - Integumentary Integumentary: denies: Rash, Pruritis - Neurological Neurological: denies: General weakness, Headache, Seizures - Psychiatric Psychiatric: reports: Anxiety, Suicidal. denies: Delusions, Homicidal - Endocrine Endocrine: denies: Polyuria, Polydypsia, Polyphagia - Hematologic/Lymphatic Hematologic/Lymphatic: denies: Anemia, Bruising Prior Level of Functionality: Independent, lives alone, ride an e-bike, does not drive. 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 Exam - Vital Signs Reviewed Vital Signs: Yes Vital Signs: Vital Signs x48h Temp Pulse Pulse Resp BP BP Pulse Ox 05/03/24 14:48 36.6 C 58 L 18 141/106 H 98 05/03/24 12:37 36.4 C L 65 20 177/119 H 98 05/03/24 09:16 36.5 C 80 16 150/110 H 100 - Physical Exam General Appearance: positive: No acute distress, Anxious (Endorses racing thoughts and persistent anxiety) Eyes Bilateral: positive: Normal inspection, PERRL, EOMI. negative: Conjunctivae nml, No scleral icterus ENT: positive: No signs of dehydration Neck: positive: Nml inspection, No JVD Respiratory: positive: Chest non-tender, No respiratory distress, Breath sounds nml. negative: Wheezes, Rales, Rhonchi Cardiovascular: positive: Regular rate & rhythm, No murmur, No gallop Peripheral Pulses: positive: 2+ Abdomen: positive: Non-tender, No organomegaly, Nml bowel sounds, No distention. negative: Guarding, Rebound Back: positive: Nml inspection Skin: positive: Color nml, No rash, Warm, Dry Extremities: positive: Full ROM, Nml appearance, No pedal edema Neurologic/Psychiatric: positive: Oriented x3, CN's nml (2-12), Motor nml, Sensation nml. negative: Mood/affect nml (Anxious, endorses persistent SI d/t overwhelm) Sepsis Event Note (H) - Evaluation Current Stage of Sepsis: Ruled out Conclusion/Plan - Problem List (1) Intentional acetaminophen overdose Conclusion/Plan: Ms. Hand states she took a "bottle" of tylenol 500 mg last night at 21:00 in a suicide attempt, stating she "just doesn't want to be alive." She told her mother and her mother drove her to the ED where she was found to have a tylenol level of 60.[address] Stewart in the ED consulted with Poison Control who recommended high dose N-acetylcysteine at 20 mg/kg/hr for 24 hrs with a recheck of LFTs and INR. LFTs were elevated with AST of 226 and ALT of 165 and coags mildy elevated with a PT of 14.9 and INR of 1.4. She was admitted to the floor with a 1:1 sitter for active SI. I will recheck LFTs and coags tomorrow, and continue the N-acetylcysteine. I ordered zofran PRN for nausea. Qualifiers: Encounter type: initial encounter Qualified Code(s): T39.1X2A - Poisoning by 4-Aminophenol derivatives, intentional self-harm, initial encounter (2) Suicide attempt Conclusion/Plan: Intentional tylenol OD with current active SI, states she "just doesn't want to be alive". She has been living alone for the first time since August 2023 and feels overwhelmed. She drinks daily and often does not eat. She states her last meal was on 05/01 and that managing food is overwhelming. She feels like she is a burden to others and endorses feeling overwhelmed at work. She has no formal mental health diagnosis, states she has "racing thoughts" and manages these with alcohol. She has not attempted suicide before and has no hx of self harm or scars suggestive of cutting. She was admitted with a 1:1 sitter. I will order a social work assessment and manage anxiety during admission with UNIQUE ulther. She is admitted voluntarily and does not have immediate plans to leave. If she tries to leave DENT, I will recommend a temporary hold for treatment and to allow completion of the mental health evaluation. (3) Alcohol dependence Conclusion/Plan: States she drink 4-8 "Buzz balls" per day, a canned alcoholic beverage. She endorses drinking for several years daily, usually starting around 1 pm and stopping around 7 pm when she goes to bed. She works opening shift at [employer] and endorses feeling anxious and shaky by the end of her shift and begins drinking immediately when she gets home. She often does not eat meals, drinking instead, and states her last meal was 05/01. She reports daily vomiting 1-3x, denies hematemesis or coffee ground emesis. She became overwhelmed when asked if she was open to quitting, was OK with the idea of pairing drinks with food and water. Given her persistent SI and intentional tylenol OD, I prefer not to provide drinks during admission as this will make evaluation of her mental status, underlying mental health conditions, and potential in-patient placement difficult. She has vitamin and electrolyte imbalances present in labs, I will order thiamine and B12 replacement along with magnesium and potassium rep lacement. I will place her on CIWA protocol during her admission and monitor for/treat s/sx of withdrawal. I will also have her evalauted by social media assistant. (4) Hypokalemia Conclusion/Plan: Patient is hypokalemic at 2.9, likely due to concurrent hypomangesemia in the setting of alcohol dependence. I will replace potassium with KCL 10 mEq/hr over 4 hrs and recheck potassium. I will also replace magnensium. (5) Hypomagnesemia Conclusion/Plan: Hypomagnesemia at 1.4, likely due to alcohol dependence. I will replace with IV magnesium 2 gm over 1 hr and recheck her magnesium levels. (6) Hyponatremia Conclusion/Plan: Mild hyponatremia at 133, likely due to decreased PO intake. I will continue to monitor this daily, no intervention is needed at this time. It will likely imp rove as she eats. I will also order IV thiamine and B12 in NS. (7) Hypochloremia Conclusion/Plan: Mild hypochloremia at 97, likely due to decreased PO intake. I will continue to monitor this daily, no intervention is needed at this time. It will likely impro ve as she eats. I will also order IV thiamine and B12 in NS. (8) Hyperglycemia Conclusion/Plan: Elevated blood glucose at 188. No hx of DM, likely due to alcohol dependence. I will monitor blood glucose daily. No further interventions are needed at this time. - Lab Results Fish Bones: 05/03/24 09:31 05/03/24 09:31 Core Measures - Anticipated LOS I expect patient to be DC'd or transferred within 96 hours.: Yes - DVT/VTE - Prophylaxis VTE/DVT Device ordered at admit?: Yes VTE/DVT Prophylaxis med ordered at admit?: No - Stroke - Rehab Assessment Rehab services assessment to be ordered?: No - AMI - Statin at Admit Aspirin Prescribed on Admit: No
[2024-05-03] MEDS ORDERED: LORazepam 0.5 MG TABLET PO PRN (15:36)
[2024-05-03] MEDS: POTASSIUM CHLOR 10 MEQ/100 ML 10 MEQ/100 ML BAG IV SCH (18:03)
[2024-05-03] MEDS: MAGNESIUM SULFATE 2 GRAM 2 GM/50 ML BAG IV ONE (18:03)
[2024-05-03] MEDS: SODIUM CHLORIDE FLUSH 0.9% 10 ML SYRINGE IVP SCH (18:04)
[2024-05-03] MEDS: SODIUM CHLORIDE 0.9% 1,000 ML IV SCH (19:47)
[2024-05-03] MEDS: THIAMINE INJ 100 MG, FOLIC ACID INJ 1 MG in SODIUM CHLORIDE 0.9% 1,000 ML IV SCH (21:40)
[2024-05-04] MEDS: LORazepam 1 MG TABLET PO PRN (00:40)
[2024-05-04 05:09] LABS: BASOPHILS # (AUTO) 0.1 10^3/uL (0.0-0.1); BASOPHILS % (AUTO) 0.8 %; EOSINOPHILS # (AUTO) 0.1 10^3/uL (0.0-0.7); EOSINOPHILS % (AUTO) 0.7 %; HCT - HEMATOCRIT 38.3 % (37.0-47.0); HGB - HEMOGLOBIN 12.1 g/dL (12.0-16.0); LYMPHOCYTES # (AUTO) 1.3 10^3/uL (1.5-3.5); LYMPHOCYTES % (AUTO) 16.8 %; MEAN CORPUSCULAR HEMOGLOBIN 26.5 pg (27.0-31.0); MEAN CORPUSCULAR HGB CONC 31.6 g/dL (32.0-36.0); MEAN CORPUSCULAR VOLUME 83.8 fL (81.0-99.0); MEAN PLATELET VOLUME 11.1 fL (7.9-10.8); MONOCYTES # (AUTO) 0.5 10^3/uL (0.0-1.0); MONOCYTES % (AUTO) 5.9 %; NEUTROPHILS # (AUTO) 5.8 10^3/uL (1.5-6.6); NEUTROPHILS % (AUTO) 75.5 %; PLT - PLATELET COUNT 290 10^3/uL (130-450); RED BLOOD COUNT 4.57 10^6/uL (4.20-5.40); RED CELL DISTRIBUTION WIDTH 15.6 % (12.0-15.0); WHITE BLOOD COUNT 7.7 x10^3/uL (4.8-10.8)
[2024-05-04 05:24] LABS: INR 2.2 (0.8-1.2); PT - PROTHROMBIN TIME 22.3 secs (9.9-12.6)
[2024-05-04 05:29] LABS: ALBUMIN 3.8 g/dL (3.2-5.5); ALBUMIN/GLOBULIN RATIO 1.7 (1.0-2.2); BILIRUBIN,DIRECT 0.95 mg/dL (0.03-0.18); BILIRUBIN,TOTAL 1.9 mg/dL (0.2-1.0); CREATININE 0.5 mg/dL (0.6-1.3); MAGNESIUM 1.8 mg/dL (1.7-2.3); PHOSPHORUS 2.4 mg/dL (2.5-5.0); POTASSIUM 3.1 mmol/L (3.5-4.5); TOTAL PROTEIN 6.1 g/dL (6.4-8.9)
[2024-05-04 08:17] LABS: ESTIMATED AVERAGE GLUCOSE 117 mg/dL (70-100); HEMOGLOBIN A1c% 5.7 % (4.27-6.07)
[2024-05-04] MEDS: POTASSIUM CHLORIDE 20 MEQ TABLET PO ONE (13:51)
[2024-05-04 15:06] LABS: INR 2.1 (0.8-1.2); PT - PROTHROMBIN TIME 21.5 secs (9.9-12.6)
[2024-05-04 15:16] LABS: ALBUMIN 3.9 g/dL (3.2-5.5)
[2024-05-04 15:26] LABS: BILIRUBIN,DIRECT 0.82 mg/dL (0.03-0.18); BILIRUBIN,TOTAL 1.6 mg/dL (0.2-1.0); TOTAL PROTEIN 6.2 g/dL (6.4-8.9)
[2024-05-04] MEDS ORDERED: DEXTROSE 5% IV ONE (16:00)
[2024-05-04] MEDS ORDERED: ACETYLCYSTEINE IV ONE (16:00)
--- NOTE | 2024-05-04 16:56 | PROVIDER PROGRESS NOTE ---
Subjective - Prog Note Date Prog Note Date: 05/04/24 Prog Note Time: 16:49 - Subjective Pt reports feeling: Improved Subjective: Ms. Hand presented to the ED on 05/03 with an intentional Tylenol overdose on 05/02 @ 21:00. She had a tylenol level of 60.8 and was placed on N-acetylcysteine 20 mg/kg/hr in the ED after consulting with Poison Control. She also endorses daily drinking, 8 "Buzz balls" per day and drinking a bottle of vodka on weekends. She endorses active SI yesterday upon admission, feels lonely, anxious, and overwhel med living on her own for the first time. Previously, she lied with her mother and then with a roomate who moved to [place] in August of 2023. Since then, she endorses increasing loneliness and overwhelm and that her "brain won't stop". She self medicates with alcohol, often not eating, and states her last meal upon admission was 05/01. 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 Her l ast drink was the evening of 05/01. She starts drinking as soon as she gets home after her shift ends at 1 and stops around 7. She endorses feeling shaky and anxious by 1 each day which settles once she starts drinking. She was placed on CIWA protocol during her admission, does not endorse readiness to quit alcohol but was open to cutting back and pairing alcohol with food. Today, she was sitting up and playing [employer] with her mother and uncle when I arrived. She appeared more cheerful, was able to laugh at jokes, and no longer endorses active SI. Her nausea has resolved and she was able to eat all of her lunch. She states she felt much better after eating and we discussed the importance of regular meals and nutrition. She has no subjective complaints, her exam is remarkable for mild tenderness to the RUQ. We discussed the current status of her treatment, with both LFTs and INR signi ficantly increased since yesterday, Tylenol level now 3.6. She reported feeling anxious and having difficulty sleeping last night, she has received PRN ativan for anxiety and alcohol withdrawals as needed. The N-acetylcysteine will be continued until her INR is <2 and her LFTs have peaked and decreased by 25%-50%. I will consult with Hepatology regarding her case to see if there is anything else we can do at this point. She received magnesium, potassium, thiamine and b12 yesterday and will continue to receive potassium PO as needed and thiamine daily. Current Medications - Current Medications Current Medications: Active Medications Generic Name Dose Route Start Last Admin Trade Name Freq PRN Reason Stop Dose Admin Thiamine HCl 100 mg/ Folic 1,001.2 mls @ 100 mls/hr 05/03/24 17:00 05/04/24 11:21 Acid 1 mg/ Sodium Chloride IV 100 mls/hr DAILY SUNITA Administration Acetylcysteine 36,000 mg/ 1,180 mls @ 52.772 mls/hr 05/04/24 16:30 Dextrose IV 05/05/24 14:51 ONCE ONE 20 MG/KG/HR Lorazepam 0.5 mg 05/03/24 15:36 Lorazepam 0.5 Mg Tablet PO Q6H PRN Anxiety Lorazepam 1 mg 05/03/24 15:36 05/04/24 00:40 Lorazepam 1 Mg Tablet PO 1 mg Q1H PRN Administration CIWA > 8 Protocol Ondansetron HCl 4 mg 05/03/24 14:15 05/04/24 10:23 Ondansetron 4 Mg/2 Ml Vial IVP 4 mg Q4HR PRN Administration Nausea / Vomiting Sodium Chloride 10 ml 05/03/24 12:41 Sodium Chloride Flush 0.9% 10 Ml Syringe IVP PRN PRN NEEDED PER PROVIDER ORDERS Sodium Chloride 10 ml 05/03/24 17:00 05/04/24 10:23 Sodium Chloride Flush 0.9% 10 Ml Syringe IVP 10 ml 0100,0900,1700 SUNITA Administration Acetaminophen [Tylenol] 2 tab PO QID PRN 05/03/24 Melatonin 2 mg PO HS PRN 05/03/24 guaiFENesin [Mucinex] 1 tab PO QID PRN 05/03/24 Objective - Vital Signs/Intake & Output Vital Signs: Vital Signs x48h Temp Pulse Resp BP Pulse Ox 05/04/24 15:17 37.2 C 77 20 152/80 H 97 05/04/24 13:00 37.1 C 72 18 160/108 H 98 Intake & Output: Intake & Output 05/01/24 05/02/24 05/03/24 05/04/24 23:59 23:59 23:59 23:59 Intake Total 2370 680 Output Total 500 Balance 1870 680 - Objective General Appearance: positive: No acute distress, Alert Eyes Bilateral: positive: Normal inspection, No scleral icterus Neck: positive: Nml inspection, No JVD Respiratory: positive: No respiratory distress, Breath sounds nml. negative: Wheezes, Rales, Rhonchi Cardiovascular: positive: Regular rate & rhythm, No murmur, No gallop Abdomen: positive: No organomegaly, No distention, Tenderness (Mild RUQ te nderness), Abnml bowel sounds (Hypoactive bowel sounds). negative: Guarding, Rebound Back: positive: Nml inspection Skin: positive: Color nml, No rash, Warm, Dry Extremities: positive: Full ROM, Nml appearance, No pedal edema Neurologic/Psychiatric: positive: Oriented x3, CN's nml (2-12), Motor nml, Sensation nml, Mood/affect nml - Lab Results Fish Bones: 05/04/24 04:50 05/04/24 04:50 Other Labs: Lab Results x24hrs 05/04/24 05/04/24 05/04/24 Range/Units 14:54 14:54 04:50 WBC (4.8-10.8) x10^3/uL RBC (4.20-5.40) 10^6/uL Hgb (12.0-16.0) g/dL Hct (37.0-47.0) % MCV (81.0-99.0) fL MCH (27.0-31.0) pg MCHC (32.0-36.0) g/dL RDW (12.0-15.0) % Plt Count (130-450) 10^3/uL MPV (7.9-10.8) fL Neut # (Auto) (1.5-6.6) 10^3/uL Lymph # (Auto) (1.5-3.5) 10^3/uL [place] # (Auto) (0.0-1.0) 10^3/uL Eos # (Auto) (0.0-0.7) 10^3/uL Baso # (Auto) (0.0-0.1) 10^3/uL Absolute Nucleated RBC x10^3/uL Nucleated RBC % /100WBC PT 21.5 H (9.9-12.6) secs INR 2.1 H (0.8-1.2) Sodium (135-145) mmol/L Potassium (3.5-4.5) mmol/L Chloride (101-111) mmol/L Carbon Dioxide (21-32) mmol/L Anion Gap (6-13) BUN (6-20) mg/dL Creatinine (0.6-1.3) mg/dL Estimated GFR (MDRD) (>89) Glucose (74-104) mg/dL Estimat Average Glucose (70-100) mg/dL Hemoglobin A1c % (4.27-6.07) % Calcium (8.5-10.3) mg/dL Phosphorus (2.5-5.0) mg/dL Magnesium (1.7-2.3) mg/dL Total Bilirubin 1.6 H (0.2-1.0) mg/dL Direct Bilirubin 0.82 H (0.03-0.18) mg/dL AST 1369 H (10-42) IU/L ALT 645 H (10-60) IU/L Alkaline Phosphatase 47 (42-121) IU/L Total Protein 6.2 L (6.4-8.9) g/dL Albumin 3.9 (3.2-5.5) g/dL Globulin 2.3 (2.1-4.2) g/dL Albumin/Globulin Ratio (1.0-2.2) Acetaminophen 3.6 ug/mL 05/04/24 05/04/24 05/04/24 Range/Units 04:50 04:50 04:50 WBC (4.8-10.8) x10^3/uL RBC (4.20-5.40) 10^6/uL Hgb (12.0-16.0) g/dL Hct (37.0-47.0) % MCV (81.0-99.0) fL MCH (27.0-31.0) pg MCHC (32.0-36.0) g/dL RDW (12.0-15.0) % Plt Count (130-450) 10^3/uL MPV (7.9-10.8) fL Neut # (Auto) (1.5-6.6) 10^3/uL Lymph # (Auto) (1.5-3.5) 10^3/uL [place] # (Auto) (0.0-1.0) 10^3/uL Eos # (Auto) (0.0-0.7) 10^3/uL Baso # (Auto) (0.0-0.1) 10^3/uL Absolute Nucleated RBC x10^3/uL Nucleated RBC % /100WBC PT 22.3 H (9.9-12.6) secs INR 2.2 H (0.8-1.2) Sodium 135 (135-145) mmol/L Potassium 3.1 L (3.5-4.5) mmol/L Chloride 100 L (101-111) mmol/L Carbon Dioxide 24 (21-32) mmol/L Anion Gap 11.0 (6-13) BUN 6 (6-20) mg/dL Creatinine 0.5 L (0.6-1.3) mg/dL Estimated GFR (MDRD) 145 (>89) Glucose 104 (74-104) mg/dL Estimat Average Glucose 117 H (70-100) mg/dL Hemoglobin A1c % 5.7 (4.27-6.07) % Calcium 9.0 (8.5-10.3) mg/dL Phosphorus 2.4 L (2.5-5.0) mg/dL Magnesium 1.8 (1.7-2.3) mg/dL Total Bilirubin 1.9 H (0.2-1.0) mg/dL Direct Bilirubin 0.95 H (0.03-0.18) mg/dL AST 441 H (10-42) IU/L ALT 261 H (10-60) IU/L Alkaline Phosphatase 49 (42-121) IU/L Total Protein 6.1 L (6.4-8.9) g/dL Albumin 3.8 (3.2-5.5) g/dL Globulin 2.3 (2.1-4.2) g/dL Albumin/Globulin Ratio 1.7 (1.0-2.2) Acetaminophen ug/mL 05/04/24 Range/Units 04:50 WBC 7.7 (4.8-10.8) x10^3/uL RBC 4.57 (4.20-5.40) 10^6/uL Hgb 12.1 (12.0-16.0) g/dL Hct 38.3 (37.0-47.0) % MCV 83.8 (81.0-99.0) fL MCH 26.5 L (27.0-31.0) pg MCHC 31.6 L (32.0-36.0) g/dL RDW 15.6 H (12.0-15.0) % Plt Count 290 (130-450) 10^3/uL MPV 11.1 H (7.9-10.8) fL Neut # (Auto) 5.8 (1.5-6.6) 10^3/uL Lymph # (Auto) 1.3 L (1.5-3.5) 10^3/uL [place] # (Auto) 0.5 (0.0-1.0) 10^3/uL Eos # (Auto) 0.1 (0.0-0.7) 10^3/uL Baso # (Auto) 0.1 (0.0-0.1) 10^3/uL Absolute Nucleated RBC 0.00 x10^3/uL Nucleated RBC % 0.0 /100WBC PT (9.9-12.6) secs INR (0.8-1.2) Sodium (135-145) mmol/L Potassium (3.5-4.5) mmol/L Chloride (101-111) mmol/L Carbon Dioxide (21-32) mmol/L Anion Gap (6-13) BUN (6-20) mg/dL Creatinine (0.6-1.3) mg/dL Estimated GFR (MDRD) (>89) Glucose (74-104) mg/dL Estimat Average Glucose (70-100) mg/dL Hemoglobin A1c % (4.27-6.07) % Calcium (8.5-10.3) mg/dL Phosphorus (2.5-5.0) mg/dL Magnesium (1.7-2.3) mg/dL Total Bilirubin (0.2-1.0) mg/dL Direct Bilirubin (0.03-0.18) mg/dL AST (10-42) IU/L ALT (10-60) IU/L Alkaline Phosphatase (42-121) IU/L Total Protein (6.4-8.9) g/dL Albumin (3.2-5.5) g/dL Globulin (2.1-4.2) g/dL Albumin/Globulin Ratio (1.0-2.2) Acetaminophen ug/mL ABX Reporting Has patient been on IV antibiotics over the past 48 hours?: No Sepsis Event Note (H) - Evaluation Current Stage of Sepsis: Ruled out Assessment/Plan - Problem List (1) Intentional acetaminophen overdose Impression: Ms. Hand states she took a "bottle" of tylenol 500 mg last night at 21:00 in a suicide attempt, stating she "just doesn't want to be alive." She told her moth er and her mother drove her to the ED where she was found to have a tylenol level of 60.[address] Stewart in the ED consulted with Poison Control who recommended high dose N-acetylcysteine at 20 mg/kg/hr for 24 hrs with a recheck of LFTs and INR. LFTs were elevated with AST of 226 and ALT of 165 and coags mildy elevated with a PT of 14.9 and INR of 1.4. She was admitted to the floor with a 1:1 sitter for active SI and recieved PRN zofran for nausea/vomiting. Today, her LFTs have markedly increased with an AST of 1,369 and ALT of 645 and an increased INR to 2.1. She has no subjective complaints and her nausea has resolved. Her exam reveals mild tenderness to palpation RUQ not present yesterday. I am concerned that her LFTs continue to rise. I will consult with Hepatology to see if there is anything else we can do to support her liver. I will continue her N-acetylcysteine and recheck labs tomorrow. Qualifiers: Encounter type: initial encounter Qualified Code(s): T39.1X2A - Poisoning by 4-Aminophenol derivatives, intentional self-harm, initial encounter (2) Suicide attempt Impression: Intentional tylenol OD admitted to the floor with active SI, stated she "just doesn't want to be alive". She has been living alone for the first time since August 2023 and feels overwhelmed. She drinks daily and often does not eat. Upon admission she stated her last meal was on 05/01 and that managing food is overwhelming. She feels like she is a burden to others and endorses feeling overwhelmed at work. She has no formal mental health diagnosis, states she has "racing thoughts" and manages these with alcohol. She was admitted with a 1:1 sitter. Today, she was sitting up and playing Exter[employer] with her family when I visited her. Her mood appears improved, she is more interactive, and she laughs at jokes. She states she is no longer feeling suicidal, would not overdose again if she had the bottle of Tylenol right now. This is not her first suicide attempt. She told the nurse that she cut her wrist and received 14 stitches. She states she felt a lot better after eating lunch and we discussed the importance of regular eating. She endorses a willingness to engage in treatment for her mental health, inluding possible inpatient or outpatient treatment and medications. Currently, her liver function is not stable and her overdose is evolving, I will defer consideration of anti-depressants until her conditions stabilizes. She remains 1:1 with a sitter. (3) Alcohol dependence Impression: States she drink 4-8 "Buzz balls" per day, a canned alcoholic beverage. She also drinks a bottle or two of vodka on the weekend. She endorses drinking for several years daily, usually starting around 1 pm and stopping around 7 pm when she goes to bed. 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 She often does not eat meals, drinking instead, and states her last meal was 05/01. She states sometimes she is faced with the choice of buying food or buying alcohol due to her limited income and that she usually chooses alcohol. She reports daily vomiting 1-3x, denies hematemesis or coffee ground emesis. She is not open to permanantly quitting at this time, is OK with the idea of pairing drinks with food and water and cutting back. She is on CIWA protocol, her last dose of Ativan was 00:40. She does not have tremors, anxiety, oly tation, sensory disturbances, or diaphoresis at this time. I replaced thiamine, B12, and magensium yesterday and she will be continued on thiamine daily. (4) Hypokalemia Impression: Patient is hypokalemic at 3.1, up from 2.9 yesterday. She received IV potassium replacement yesterday along with magnesium. I will continue to supplement potassium orally and recheck her potassium levels tomorrow. As her potassium is now above 3, I will discontinue tele monitoring. (5) Hypomagnesemia Impression: She presented with hypomagnesemia at 1.4, likely due to alcohol dependence. She recieved 2 gm IVPB yesterday and it has resolved with her magnesium now 1.8. I will continue to monitor her electrolytes and suuplement orally if needed. (6) Hyponatremia Impression: She presented with mild hyponatremia at 133, likely due to decreased PO intake. This is resolved today with a sodium of 135. (7) Hypochloremia Impression: Presented with mild hypochloremia at 97, likely due to decreased PO intake. It is resolving and was 100 today. No intervention is needed. I will continue to monitor electrolytes daily. (8) Hyperglycemia Impression: Elevated blood glucose at 188 on admission. No hx of DM, likely due to alcohol dependence. A1c was 5.7 ruling out undiagnosed DM and blood glucose is now 104. No interventions are needed, I will continue to monitor blood glucose daily along with electrolytes.
[2024-05-04] MEDS: ACETYLCYSTEINE IV ONE (19:15)
[2024-05-04] MEDS: DEXTROSE 5% IV ONE (19:15)
[2024-05-05 06:05] LABS: BASOPHILS % (AUTO) 0.3 %; EOSINOPHILS # (AUTO) 0.1 10^3/uL (0.0-0.7); EOSINOPHILS % (AUTO) 1.4 %; HCT - HEMATOCRIT 34.9 % (37.0-47.0); HGB - HEMOGLOBIN 10.9 g/dL (12.0-16.0); LYMPHOCYTES # (AUTO) 1.3 10^3/uL (1.5-3.5); LYMPHOCYTES % (AUTO) 18.8 %; MEAN CORPUSCULAR HEMOGLOBIN 25.8 pg (27.0-31.0); MEAN CORPUSCULAR HGB CONC 31.2 g/dL (32.0-36.0); MEAN CORPUSCULAR VOLUME 82.5 fL (81.0-99.0); MEAN PLATELET VOLUME 11.3 fL (7.9-10.8); MONOCYTES # (AUTO) 0.9 10^3/uL (0.0-1.0); MONOCYTES % (AUTO) 12.9 %; NEUTROPHILS # (AUTO) 4.4 10^3/uL (1.5-6.6); NEUTROPHILS % (AUTO) 66.1 %; PLT - PLATELET COUNT 221 10^3/uL (130-450); RED BLOOD COUNT 4.23 10^6/uL (4.20-5.40); RED CELL DISTRIBUTION WIDTH 15.5 % (12.0-15.0); WHITE BLOOD COUNT 6.7 x10^3/uL (4.8-10.8)
[2024-05-05 06:13] LABS: BILIRUBIN,DIRECT 0.53 mg/dL (0.03-0.18)
[2024-05-05 06:35] LABS: INR 2.1 (0.8-1.2); PT - PROTHROMBIN TIME 21.7 secs (9.9-12.6)
[2024-05-05 07:15] LABS: ALBUMIN 3.4 g/dL (3.2-5.5); ALBUMIN/GLOBULIN RATIO 1.8 (1.0-2.2); BILIRUBIN,TOTAL 0.9 mg/dL (0.2-1.0); CALCIUM 8.7 mg/dL (8.5-10.3); CREATININE 0.5 mg/dL (0.6-1.3); POTASSIUM 3.3 mmol/L (3.5-4.5); TOTAL PROTEIN 5.3 g/dL (6.4-8.9)
[2024-05-05] MEDS: polyethylene glycoL 3350 17 GM PACKET PO SCH (08:41)
[2024-05-05] MEDS: POTASSIUM CHLORIDE 20 MEQ TABLET PO ONE (10:49)
[2024-05-05] MEDS: PRENATAL VITAMIN TABLET PO SCH (10:49)
[2024-05-05] MEDS: THIAMINE 100 MG TABLET PO SCH (10:49)
--- NOTE | 2024-05-05 13:49 | PROVIDER PROGRESS NOTE ---
Subjective - Prog Note Date Prog Note Date: 05/05/24 Prog Note Time: 13:42 - Subjective Pt reports feeling: Improved Subjective: Ms. Hand presented to the ED on 05/03 with an intentional Tylenol overdose on 05/02 @ 21:00. She had a tylenol level of 60.8 and was placed on N-acetylcysteine 20 mg/kg/hr in the ED after consulting with Poison Control. She also endorses daily drinking, 8 "Buzz balls" per day and drinking a bottle of vodka on weekends. She endorses active SI upon admission, feels lonely, anxious, and overwhelmed living on her own for the first time. Previously, she lied with her mother and then with a roomate who moved to [place] in August of 2023. Since then, she endorses increasing loneliness and overwhelm and that her "brain won't stop". She self medicates with alcohol, often not eating, and states her last meal upon admission was 05/01. 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 Her last drink was the evening of 05/01. She starts drinking as soon as she gets home after her shift ends at 1 and stops around 7. She endorses feeling shaky and anxious by 1 each day which settles once she starts drinking. She was placed on CIWA protocol during her admission, does not endorse readiness to quit alcohol but was open to cutting back and pairing alcohol with food. Today, she was sitting up and and picking at breakfast when I arrived. She appeared a little down and stated she was lonely. She no longer endorses active SI. Her nausea has not returned and she is working on her breakfast. She is afraid of feeling nauseas after eating and I told her we could treat nausea if it occurs, encouraging her to try and eat more. She has no subjective complaints, her exam is remarkable for mild tenderness to the RUQ. We discussed the current status of her treatment, with LFTs increasing significantly overnight and her INR holding stable. She remains on the N- acetylcysteine with the plan to continue it until her INR is <2 and her LFTs have peaked and decreased by 25%-50%. After a consult with hepatology, there are no additional treatments we can do at this time. We checked an ammonia level and can consider lactulose if it rises and she has symptoms of encephalopathy but it is not eleveated and she is not encephalopathic at this time. Social work has been working on a safety plan for discharge and I will order a tele psych consult for diagnosis and medication recommendation prior to discharge. She will follow-up outpatient once she is medically stable. Current Medications - Current Medications Current Medications: Active Medications Generic Name Dose Route Start Last Admin Trade Name Freq PRN Reason Stop Dose Admin Acetylcysteine 36,000 mg/ 1,180 mls @ 52.772 mls/hr 05/04/24 16:30 05/04/24 19:15 Dextrose IV 05/05/24 14:51 20 mg/kg/hr ONCE ONE 52.772 mls/hr Administration 20 MG/KG/HR Acetylcysteine 36,000 mg/ 1,180 mls @ 52.772 mls/hr 05/05/24 17:00 Dextrose IV .[id number] SUNITA Lorazepam 0.5 mg 05/03/24 15:36 Lorazepam 0.5 Mg Tablet PO Q6H PRN Anxiety Lorazepam 1 mg 05/03/24 15:36 05/04/24 00:40 Lorazepam 1 Mg Tablet PO 1 mg Q1H PRN Administration CIWA > 8 Protocol Ondansetron HCl 4 mg 05/03/24 14:15 05/04/24 10:23 Ondansetron 4 Mg/2 Ml Vial IVP 4 mg Q4HR PRN Administration Nausea / Vomiting Polyethylene Glycol 17 gm 05/05/24 09:00 05/05/24 08:41 Polyethylene Glycol 3350 17 Gm Packet PO 17 gm DAILY SUNITA Administration Multivit/Folic Acid/Iron 1 tab 05/05/24 11:00 05/05/24 10:49 Vitamin Tablet PO 1 tab DAILYWM SUNITA Administration Sodium Chloride 10 ml 05/03/24 12:41 Sodium Chloride Flush 0.9% 10 Ml Syringe IVP PRN PRN NEEDED PER PROVIDER ORDERS Sodium Chloride 10 ml 05/03/24 17:00 05/05/24 08:43 Sodium Chloride Flush 0.9% 10 Ml Syringe IVP 10 ml 0100,0900,1700 SUNITA Administration Thiamine HCl 100 mg 05/05/24 11:00 05/05/24 10:49 Thiamine 100 Mg Tablet PO 100 mg DAILY SUNITA Administration Acetaminophen [Tylenol] 2 tab PO QID PRN 05/03/24 Melatonin 2 mg PO HS PRN 05/03/24 guaiFENesin [Mucinex] 1 tab PO QID PRN 05/03/24 Objective - Vital Signs/Intake & Output Reviewed Vital Signs: Yes Vital Signs: Vital Signs x48h Temp Pulse Resp BP Pulse Ox 05/05/24 07:32 36.8 C 77 16 123/85 H 96 Intake & Output: Intake & Output 05/02/24 05/03/24 05/04/24 05/05/24 23:59 23:59 23:59 23:59 Intake Total 2370 3003.2 990 Output Total 500 Balance 1870 3003.2 990 - Objective General Appearance: positive: No acute distress, Alert Eyes Bilateral: positive: Normal inspection, EOMI Neck: positive: Nml inspection, No JVD Respiratory: positive: Chest non-tender, No respiratory distress, Breath sounds nml. negative: Wheezes, Rales, Rhonchi Cardiovascular: positive: Regular rate & rhythm, No murmur, No gallop. negative: Tachycardia Abdomen: positive: No organomegaly, Nml bowel sounds, No distention, Tenderness (Mild tenderness RUQ). negative: Guarding, Rebound Back: positive: Nml inspection Skin: positive: Color nml, No rash, Warm, Dry Extremities: positive: Full ROM, Nml appearance, No pedal edema Neurologic/Psychiatric: positive: Oriented x3, CN's nml (2-12), Motor nml, Sensation nml, Mood/affect nml (Appears low today but perked up when I talked with her) - Lab Results Fish Bones: 05/05/24 05:45 05/05/24 05:45 Other Labs: Lab Results x24hrs 05/05/24 05/05/24 05/05/24 Range/Units 05:45 05:45 05:45 WBC (4.8-10.8) x10^3/uL RBC (4.20-5.40) 10^6/uL Hgb (12.0-16.0) g/dL Hct (37.0-47.0) % MCV (81.0-99.0) fL MCH (27.0-31.0) pg MCHC (32.0-36.0) g/dL RDW (12.0-15.0) % Plt Count (130-450) 10^3/uL MPV (7.9-10.8) fL Neut # (Auto) (1.5-6.6) 10^3/uL Lymph # (Auto) (1.5-3.5) 10^3/uL [place] # (Auto) (0.0-1.0) 10^3/uL Eos # (Auto) (0.0-0.7) 10^3/uL Baso # (Auto) (0.0-0.1) 10^3/uL Absolute Nucleated RBC x10^3/uL Nucleated RBC % /100WBC PT 21.7 H (9.9-12.6) secs INR 2.1 H (0.8-1.2) Sodium 133 L (135-145) mmol/L Potassium 3.3 L (3.5-4.5) mmol/L Chloride 100 L (101-111) mmol/L Carbon Dioxide 29 (21-32) mmol/L Anion Gap 4.0 L (6-13) BUN 4 L (6-20) mg/dL Creatinine 0.5 L (0.6-1.3) mg/dL Estimated GFR (MDRD) 145 (>89) Glucose 129 H (74-104) mg/dL Estimat Average Glucose (70-100) mg/dL Hemoglobin A1c % (4.27-6.07) % Calcium 8.7 (8.5-10.3) mg/dL Total Bilirubin 0.9 (0.2-1.0) mg/dL Direct Bilirubin 0.53 H (0.03-0.18) mg/dL AST 2736 H (10-42) IU/L ALT 1260 H (10-60) IU/L Alkaline Phosphatase 40 L (42-121) IU/L Ammonia < 10.0 L (18-72) umol/L Total Protein 5.3 L (6.4-8.9) g/dL Albumin 3.4 (3.2-5.5) g/dL Globulin 1.9 L (2.1-4.2) g/dL Albumin/Globulin Ratio 1.8 (1.0-2.2) 05/05/24 05/04/24 05/04/24 Range/Units 05:45 14:54 14:54 WBC 6.7 (4.8-10.8) x10^3/uL RBC 4.23 (4.20-5.40) 10^6/uL Hgb 10.9 L (12.0-16.0) g/dL Hct 34.9 L (37.0-47.0) % MCV 82.5 (81.0-99.0) fL MCH 25.8 L (27.0-31.0) pg MCHC 31.2 L (32.0-36.0) g/dL RDW 15.5 H (12.0-15.0) % Plt Count 221 (130-450) 10^3/uL MPV 11.3 H (7.9-10.8) fL Neut # (Auto) 4.4 (1.5-6.6) 10^3/uL Lymph # (Auto) 1.3 L (1.5-3.5) 10^3/uL [place] # (Auto) 0.9 (0.0-1.0) 10^3/uL Eos # (Auto) 0.1 (0.0-0.7) 10^3/uL Baso # (Auto) 0.0 (0.0-0.1) 10^3/uL Absolute Nucleated RBC 0.00 x10^3/uL Nucleated RBC % 0.0 /100WBC PT 21.5 H (9.9-12.6) secs INR 2.1 H (0.8-1.2) Sodium (135-145) mmol/L Potassium (3.5-4.5) mmol/L Chloride (101-111) mmol/L Carbon Dioxide (21-32) mmol/L Anion Gap (6-13) BUN (6-20) mg/dL Creatinine (0.6-1.3) mg/dL Estimated GFR (MDRD) (>89) Glucose (74-104) mg/dL Estimat Average Glucose (70-100) mg/dL Hemoglobin A1c % (4.27-6.07) % Calcium (8.5-10.3) mg/dL Total Bilirubin 1.6 H (0.2-1.0) mg/dL Direct Bilirubin 0.82 H (0.03-0.18) mg/dL AST 1369 H (10-42) IU/L ALT 645 H (10-60) IU/L Alkaline Phosphatase 47 (42-121) IU/L Ammonia (18-72) umol/L Total Protein 6.2 L (6.4-8.9) g/dL Albumin 3.9 (3.2-5.5) g/dL Globulin 2.3 (2.1-4.2) g/dL Albumin/Globulin Ratio (1.0-2.2) 05/04/24 Range/Units 04:50 WBC (4.8-10.8) x10^3/uL RBC (4.20-5.40) 10^6/uL Hgb (12.0-16.0) g/dL Hct (37.0-47.0) % MCV (81.0-99.0) fL MCH (27.0-31.0) pg MCHC (32.0-36.0) g/dL RDW (12.0-15.0) % Plt Count (130-450) 10^3/uL MPV (7.9-10.8) fL Neut # (Auto) (1.5-6.6) 10^3/uL Lymph # (Auto) (1.5-3.5) 10^3/uL [place] # (Auto) (0.0-1.0) 10^3/uL Eos # (Auto) (0.0-0.7) 10^3/uL Baso # (Auto) (0.0-0.1) 10^3/uL Absolute Nucleated RBC x10^3/uL Nucleated RBC % /100WBC PT (9.9-12.6) secs INR (0.8-1.2) Sodium (135-145) mmol/L Potassium (3.5-4.5) mmol/L Chloride (101-111) mmol/L Carbon Dioxide (21-32) mmol/L Anion Gap (6-13) BUN (6-20) mg/dL Creatinine (0.6-1.3) mg/dL Estimated GFR (MDRD) (>89) Glucose (74-104) mg/dL Estimat Average Glucose 117 H (70-100) mg/dL Hemoglobin A1c % 5.7 (4.27-6.07) % Calcium (8.5-10.3) mg/dL Total Bilirubin (0.2-1.0) mg/dL Direct Bilirubin (0.03-0.18) mg/dL AST (10-42) IU/L ALT (10-60) IU/L Alkaline Phosphatase (42-121) IU/L Ammonia (18-72) umol/L Total Protein (6.4-8.9) g/dL Albumin (3.2-5.5) g/dL Globulin (2.1-4.2) g/dL Albumin/Globulin Ratio (1.0-2.2) ABX Reporting Has patient been on IV antibiotics over the past 48 hours?: No Sepsis Event Note (H) - Evaluation Current Stage of Sepsis: Ruled out Assessment/Plan - Problem List (1) Intentional acetaminophen overdose Impression: Ms. Hand states she took a "bottle" of tylenol 500 mg at at 21:00 on 05/03 in a suicide attempt, stating she "just doesn't want to be alive." She told her mother and her mother drove her to the ED where she was found to have a tylenol level of 60.[address] Stewart in the ED consulted with Poison Control who recommended high dose N-acetylcysteine at 20 mg/kg/hr for 24 hrs with a recheck of LFTs and INR. LFTs were elevated with AST of 226 and ALT of 165 and coags mildy elevated with a PT of 14.9 and INR of 1.4. She was admitted to the floor with a 1:1 sitter for active SI and recieved PRN zofran for nausea/vomiting. Today, her LFTs have continued to climb with an AST of 2,736 and ALT of 1,260 and her INR remains stable at 2.1. Her T. Bili is now also elevated at 0.53. She has no subjective complaints and her nausea has resolved. Her exam reveals mild tenderness to palpation RUQ as noted yesterday. She reported a headache earlier but denies any complaints now. hepatology was consulted yesterday and there is no additional treatment that can be done beyond what is already being done. We discussed her condition and that we are doing everything that can be done to support her liver. At this point, we just have to wait and see if/when her LTFs peak, continue the N-acetylecysteine, and support her nutrition. The goal for discontinuing n-acetylcysteine is a decrease in LFTs 25%-50% from their peak and an INR<2. Qualifiers: Encounter type: initial encounter Qualified Code(s): T39.1X2A - Poisoning by 4-Aminophenol derivatives, intentional self-harm, initial encounter (2) Suicide attempt Impression: Intentional tylenol OD admitted to the floor with active SI, stated she "just doesn't want to be alive". She has been living alone for the first time since August 2023 and feels overwhelmed. She drinks daily and often does not eat. Upon admission she stated her last meal was on 05/01 and that managing food is overwhelming. She feels like she is a burden to others and endorses feeling overwhelmed at work. She has no formal mental health diagnosis, states she has "racing thoughts" and manages these with alcohol. She was admitted with a 1:1 sitter. Yesterday, she was sitting up and playing [employer] with her family when I visited her. Her mood appeared improved, she was more interactive, and she laughed at jokes. Today, she appears to have a low mood and is picking at her food. She stated she is no longer feeling suicidal, would not overdose again if she had the bottle of Tylenol right now. This is not her first suicide attempt. She told the nurse that she cut her wrist and received 14 stitches. She states she felt a lot better after eating lunch and we discussed the importance of regular eat ing. She endorses a willingness to engage in treatment for her mental health, including possible inpatient or outpatient treatment and medications. Currently, her liver function is not stable and her overdose is evolving, I will defer consideration of anti-depressants until her conditions stabilizes. She was removed from 1:1 at the recommendation of social work. I will arrange a tele psych visit for her when she is stable and ready for discharge planning. (3) Alcohol dependence Impression: States she drink 4-8 "Buzz balls" per day, a canned alcoholic beverage. She also drinks a bottle or two of vodka on the weekend. She endorses drinking for several years daily, usually starting around 1 pm and stopping around 7 pm when she goes to bed. 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 She often does not eat meals, drinking instead, and states her last meal was 05/01 upon admission. She states sometimes she is faced with the choice of buying food or buying alcohol due to her limited income and that she usually chooses alcohol. She reports daily vomiting 1-3x, denies hematemesis or coffee ground emesis. She was initially not open to permanantly quitting but was OK with the idea of pairing drinks with food and water and cutting back. She is on CIWA protocol, her last dose of Ativan was 00:40 yesterday. She does not have tremors, anxiety, agitation, sensory disturbances, or diaphoresis at this time. She will be continued on pre-lin vitamins for nutrient replacement with potassium supplementation. She is now realizing that she may not be able to drink again because of her liver. She is willing to go to rehab if she needs it for her alcohol use. (4) Hypokalemia Impression: Patient remains hypokalemic at 3.3, up from 3.1 yesterday. She received IV potassium replacement on 05/03 along with magnesium. I will continue to supplement potassium orally and recheck her potassium levels tomorrow. Tele monitoring was discontinued yesterday. I will continue to monitor her potassium level daily a nd supplement as needed. (5) Hypomagnesemia Impression: She presented with hypomagnesemia at 1.4, likely due to alcohol dependence. She recieved 2 gm IVPB on 05/03 and it has resolved with her magnesium now 1.8 and her hypomagnesemia is resolved. (6) Hyponatremia Impression: She presented with mild hyponatremia at 133, likely due to decreased PO intake. Her sodium increased yesterday to 135 but has since decreased to 133. I will encourage her to eat food and continue to monitor. If it remains low, I will supplement with salt tabs. (7) Hypochloremia Impression: Presented with mild hypochloremia at 97, likely due to decreased PO intake. It is resolving and remains at 100 today. No intervention is needed. I will continue to monitor electrolytes daily. (8) Hyperglycemia Impression: Elevated blood glucose at 188 on admission. No hx of DM, likely due to alcohol dependence. A1c was 5.7 ruling out undiagnosed DM and blood glucose is now 129 today. No interventions are needed. I will continue to monitor blood glucose daily along with electrolytes.
[2024-05-05] MEDS ORDERED: DEXTROSE 5% 0 ML IV ONE (17:55)
[2024-05-05] MEDS: ACETYLCYSTEINE IV SCH (18:00)
[2024-05-05] MEDS: DEXTROSE 5% IV SCH (18:00)
[2024-05-06 05:21] LABS: BASOPHILS # (AUTO) 0.1 10^3/uL (0.0-0.1); BASOPHILS % (AUTO) 0.8 %; EOSINOPHILS # (AUTO) 0.3 10^3/uL (0.0-0.7); EOSINOPHILS % (AUTO) 4.7 %; HCT - HEMATOCRIT 33.9 % (37.0-47.0); HGB - HEMOGLOBIN 10.5 g/dL (12.0-16.0); LYMPHOCYTES # (AUTO) 1.6 10^3/uL (1.5-3.5); LYMPHOCYTES % (AUTO) 27.1 %; MEAN CORPUSCULAR HEMOGLOBIN 25.9 pg (27.0-31.0); MEAN CORPUSCULAR VOLUME 83.7 fL (81.0-99.0); MEAN PLATELET VOLUME 12.2 fL (7.9-10.8); MONOCYTES # (AUTO) 0.7 10^3/uL (0.0-1.0); MONOCYTES % (AUTO) 11.8 %; NEUTROPHILS # (AUTO) 3.3 10^3/uL (1.5-6.6); NEUTROPHILS % (AUTO) 55.4 %; PLT - PLATELET COUNT 205 10^3/uL (130-450); RED BLOOD COUNT 4.05 10^6/uL (4.20-5.40); RED CELL DISTRIBUTION WIDTH 15.5 % (12.0-15.0); WHITE BLOOD COUNT 5.9 x10^3/uL (4.8-10.8)
[2024-05-06 05:41] LABS: INR 1.8 (0.8-1.2); PT - PROTHROMBIN TIME 19.1 secs (9.9-12.6)
[2024-05-06 06:03] LABS: BILIRUBIN,DIRECT 0.44 mg/dL (0.03-0.18)
[2024-05-06 07:21] LABS: ALBUMIN 3.3 g/dL (3.2-5.5); ALBUMIN/GLOBULIN RATIO 1.3 (1.0-2.2); BILIRUBIN,TOTAL 0.8 mg/dL (0.2-1.0); CALCIUM 8.9 mg/dL (8.5-10.3); CREATININE 0.5 mg/dL (0.6-1.3); POTASSIUM 3.5 mmol/L (3.5-4.5); TOTAL PROTEIN 5.8 g/dL (6.4-8.9)
--- NOTE | 2024-05-06 12:48 | TELEPSYCH PHYS NOTE ---
[facility] Telepsych Consult Consult Date: 05/06/24 - Medication & Allergies Home Medications: Ambulatory Orders Medication Instructions Recorded Confirmed Acetaminophen [Tylenol] 2 tab PO QID PRN 05/03/24 05/03/24 Melatonin 2 mg PO HS PRN 05/03/24 05/03/24 guaiFENesin [Mucinex] 1 tab PO QID PRN 05/03/24 05/03/24 Allergies/Adverse Reactions: Allergies Allergy/AdvReac Type Severity Reaction Status Date / Time No Known Drug Allergies Allergy Verified 05/03/24 09:16 - Drug & Alcohol History Use: Uses substance without health or social issues: Alcohol (4-8 "Buzz balls" per day, a type of hard alcohol in a can. She states she starts drinking immediately upon getting home around 1 pm and stops around 7 pm.) Use Issues: Mood Disorder Abuse: Recurrent use of substance despite neg consequences: NONE Dependence: Experiences withdrawal or developed tolerances: Alcohol (Reports feeling anxious and shaky by 1 pm at the end of her shift and goes home to drink immediately) - Medical History Psychiatric: reports: Anxiety (No formal dx, has never seen an MHP) Neurological: reports: None Eyes, Ears, Nose, Throat: reports: None Cardiovascular: reports: None Respiratory: reports: None Gastrointestinal: reports: None Urinary: reports: None STRATEGIC BUSINESS DEVELOPMENT: reports: None 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 She previously lived with her best friend Julita who then moved to [place]. Before that, she lived with her mom. She has never lived alone before and is finding it overwhelming. She reports difficulty feeding herself and often chooses to drink intead of eat when home.
--- NOTE | 2024-05-06 15:19 | PROVIDER PROGRESS NOTE ---
Subjective - Prog Note Date Prog Note Date: 05/06/24 Prog Note Time: 15:15 - Subjective Pt reports feeling: No change Subjective: Ms. Hand presented to the ED on 05/03 with an intentional Tylenol overdose on 05/02 @ 21:00. She had a tylenol level of 60.8 and was placed on N-acetylcysteine 20 mg/kg/hr in the ED after consulting with Poison Control. She also endorses daily drinking, 8 "Buzz balls" per day and drinking a bottle of vodka on weekends. She endorses active SI upon admission, feels lonely, anxious, and overwhelmed living on her own for the first time. Previously, she lied with her mother and then with a roomate who moved to [place] in August of 2023. Since then, she endorses increasing loneliness and overwhelm and that her "brain won't stop". She self medicates with alcohol, often not eating, and states her last meal upon admission was 05/01. 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 Her last drink was the evening of 05/01. She starts drinking as soon as she gets home after her shift ends at 1 and stops around 7. She endorses feeling shaky and anxious by 1 each day which settles once she starts drinking. She was placed on CIWA protocol during her admission, does not endorse readiness to quit alcohol but was open to cutting back and pairing alcohol with food. She remains on the N-acetylcysteine with the plan to continue it until her INR is <2 and her LFTs have peaked and decreased by 25%-50%. After a consult with hepatology, there are no additional treatments we can do at this time. We checked an ammonia level and can consider lactulose if it rises and she has symptoms of encephalopathy but it is not eleveated and she is not encephalopathic at this time. Today, she was sitting up when I arrived and told me she ate all her breakfast. Her mother is with her and voiced her concerns over the safety of outpatient treatment, requesting an involuntary detainment. DCR evaluation is that she does not meet criteria for involuntary or inpatient halfway. I discussed with them that her most recent labs show her AST has peaked and is declining and her INR is now below 2. Her ALT was still rising but has slowed. We will recheck labs 2 hrs before the current bag of NAC is done to evaluate if she meets stopping criteria. We arranged for tele psych to see her this afternoon. Nutrition also met with the patient to help her develop a good plan to support her eating outside of the hospital. If her labs continue to trend in their current direction she will be medically cleared for discharge tomorrow. Social work is setting her up for outpatient mental health consultation and has been working on a safety plan. Current Medications - Current Medications Current Medications: Ms. Hand states she took a "bottle" of tylenol 500 mg at at 21:00 on 05/03 in a suicide attempt, stating she "just doesn't want to be alive." She told her mother and her mother drove her to the ED where she was found to have a tylenol level of 60.[address] Stewart in the ED consulted with Poison Control who recommended high dose N-acetylcysteine at 20 mg/kg/hr for 24 hrs with a recheck of LFTs and INR. LFTs were elevated with AST of 226 and ALT of 165 and coags mildy elevated with a PT of 14.9 and INR of 1.4. She was admitted to the floor with a 1:1 sitter for active SI and recieved PRN zofran for nausea/vomiting. Today, her LFTs have continued to climb with an AST of 2,736 and ALT of 1,260 and her INR remains stable at 2.1. Her T. Bili is now also elevated at 0.53. She has no subjective complaints and her nausea has resolved. Her exam reveals mild tenderness to palpation RUQ as noted yesterday. She reported a headache earlier but denies any complaints now. hepatology was consulted yesterday and there i s no additional treatment that can be done beyond what is already being done. We discussed her condition and that we are doing everything that can be done to support her liver. At this point, we just have to wait and see if/when her LTFs peak, continue the N-acetylecysteine, and support her nutrition. The goal for discontinuing n-acetylcysteine is a decrease in LFTs 25%-50% from their peak and an INR<2. Qualifiers: Encounter type: initial encounter Qualified Code(s): T39.1X2A - Poisoning by 4-Aminophenol derivatives, intentional self-harm, initial encounter Active Medications Generic Name Dose Route Start Last Admin Trade Name Freq PRN Reason Stop Dose Admin Acetylcysteine 36,000 mg/ 1,180 mls @ 52.772 mls/hr 05/05/24 17:00 05/05/24 18:00 Dextrose IV 52.772 mls/hr .[id number] SUNITA Administration Lorazepam 0.5 mg 05/03/24 15:36 Lorazepam 0.5 Mg Tablet PO Q6H PRN Anxiety Lorazepam 1 mg 05/03/24 15:36 05/04/24 00:40 Lorazepam 1 Mg Tablet PO 1 mg Q1H PRN Administration CIWA > 8 Protocol Ondansetron HCl 4 mg 05/03/24 14:15 05/04/24 10:23 Ondansetron 4 Mg/2 Ml Vial IVP 4 mg Q4HR PRN Administration Nausea / Vomiting Polyethylene Glycol 17 gm 05/05/24 09:00 05/06/24 08:50 Polyethylene Glycol 3350 17 Gm Packet PO 17 gm DAILY SUNITA Administration Multivit/Folic Acid/Iron 1 tab 05/05/24 11:00 05/06/24 08:49 Vitamin Tablet PO 1 tab DAILYWM SUNITA Administration Sodium Chloride 10 ml 05/03/24 12:41 Sodium Chloride Flush 0.9% 10 Ml Syringe IVP PRN PRN NEEDED PER PROVIDER ORDERS Sodium Chloride 10 ml 05/03/24 17:00 05/06/24 08:49 Sodium Chloride Flush 0.9% 10 Ml Syringe IVP Not Given 0100,0900,1700 SUNITA Thiamine HCl 100 mg 05/05/24 11:00 05/06/24 08:49 Thiamine 100 Mg Tablet PO 100 mg DAILY SUNITA Administration Acetaminophen [Tylenol] 2 tab PO QID PRN 05/03/24 Melatonin 2 mg PO HS PRN 05/03/24 guaiFENesin [Mucinex] 1 tab PO QID PRN 05/03/24 Objective - Vital Signs/Intake & Output Reviewed Vital Signs: Yes Vital Signs: Vital Signs x48h Temp Pulse Resp BP Pulse Ox 05/06/24 10:30 36.7 C 73 16 126/83 H 98 05/06/24 10:20 36.6 C 73 16 126/83 H 98 Intake & Output: Intake & Output 08/11/2505/04/24 05/05/24 05/06/24 23:59 23:59 23:59 23:59 Intake Total 2370 3003.2 3057 360 Output Total 500 Balance 1870 3003.2 3057 360 - Objective General Appearance: positive: No acute distress, Alert Eyes Bilateral: positive: Normal inspection, No scleral icterus Neck: positive: No JVD Respiratory: positive: Chest non-tender, No respiratory distress, Breath sounds nml. negative: Wheezes, Rales, Rhonchi Cardiovascular: positive: Regular rate & rhythm, No murmur, No gallop. negative: Tachycardia Peripheral Pulses: 2+ Radial (R), 2+ Radial (L), 2+ Dorsalis pedis (R), 2+ Dorsalis pedis (L) Abdomen: positive: No organomegaly, Nml bowel sounds, No distention, Tenderness (Mild TTP RUQ) Back: positive: Nml inspection Skin: positive: Color nml, No rash, Warm, Dry Extremities: positive: Full ROM, Nml appearance, No pedal edema Neurologic/Psychiatric: positive: Oriented x3, CN's nml (2-12), Motor nml, Sensation nml, Mood/affect nml - Lab Results Fish Bones: 05/06/24 04:47 05/06/24 04:47 Other Labs: Lab Results x24hrs 05/06/24 05/06/24 05/06/24 Range/Units 04:47 04:47 04:47 WBC 5.9 (4.8-10.8) x10^3/uL RBC 4.05 L (4.20-5.40) 10^6/uL Hgb 10.5 L (12.0-16.0) g/dL Hct 33.9 L (37.0-47.0) % MCV 83.7 (81.0-99.0) fL MCH 25.9 L (27.0-31.0) pg MCHC 31.0 L (32.0-36.0) g/dL RDW 15.5 H (12.0-15.0) % Plt Count 205 (130-450) 10^3/uL MPV 12.2 H (7.9-10.8) fL Neut # (Auto) 3.3 (1.5-6.6) 10^3/uL Lymph # (Auto) 1.6 (1.5-3.5) 10^3/uL Hartley # (Auto) 0.7 (0.0-1.0) 10^3/uL Eos # (Auto) 0.3 (0.0-0.7) 10^3/uL Baso # (Auto) 0.1 (0.0-0.1) 10^3/uL Absolute Nucleated RBC 0.00 x10^3/uL Nucleated RBC % 0.0 /100WBC PT 19.1 H (9.9-12.6) secs INR 1.8 H (0.8-1.2) Sodium 138 (135-145) mmol/L Potassium 3.5 (3.5-4.5) mmol/L Chloride 103 (101-111) mmol/L Carbon Dioxide 29 (21-32) mmol/L Anion Gap 6.0 (6-13) BUN 5 L (6-20) mg/dL Creatinine 0.5 L (0.6-1.3) mg/dL Estimated GFR (MDRD) 145 (>89) Glucose 110 H (74-104) mg/dL Calcium 8.9 (8.5-10.3) mg/dL Total Bilirubin 0.8 (0.2-1.0) mg/dL Direct Bilirubin 0.44 H (0.03-0.18) mg/dL AST 1370 H (10-42) IU/L ALT 1330 H (10-60) IU/L Alkaline Phosphatase 36 L (42-121) IU/L Total Protein 5.8 L (6.4-8.9) g/dL Albumin 3.3 (3.2-5.5) g/dL Globulin 2.5 (2.1-4.2) g/dL Albumin/Globulin Ratio 1.3 (1.0-2.2) ABX Reporting Has patient been on IV antibiotics over the past 48 hours?: No Sepsis Event Note (H) - Evaluation Current Stage of Sepsis: Ruled out Assessment/Plan - Problem List (1) Intentional acetaminophen overdose Impression: Ms. Hand states she took a "bottle" of tylenol 500 mg at at 21:00 on 05/03 in a suicide attempt, stating she "just doesn't want to be alive." She told her mother and her mother drove her to the ED where she was found to have a tylenol level of 60.[address] Stewart in the ED consulted with Poison Control who recommended high dose N-acetylcysteine at 20 mg/kg/hr for 24 hrs with a recheck of LFTs and INR. LFTs were elevated with AST of 226 and ALT of 165 and coags mildy elevated with a PT of 14.9 and INR of 1.4. She was admitted to the floor with a 1:1 sitter for active SI and recieved PRN zofran for nausea/vomiting. Today, her AST has decreased to 1,330 while ALT increased to 1330. Her INR is now 1.8 which meets the INR goal. Her T. Bili is now 0.44, decreased from 0.53. She has no subjective complaints and her nausea has resolved. Her exam reveals mild tenderness to palpation RUQ. hepatology was consulted and there is no additional treatment that can be done beyond what is already being done. We discussed her condition and that we are doing everything that can be done to support her liver. N-acetylcysteine can be stopped when she has a decrease in LFTs 25%-50% from their peak and an INR<2. At this point her AST and INR meet goals but her ALT has not yet stabilized. I will recheck labs this afternoon to see if it needs to be continued. Qualifiers: Encounter type: initial encounter Qualified Code(s): T39.1X2A - Poisoning by 4-Aminophenol derivatives, intentional self-harm, initial encounter (2) Suicide attempt Impression: Intentional tylenol OD admitted to the floor with active SI, stated she "just doesn't want to be alive". She has been living alone for the first time since August 2023 and feels overwhelmed. She drinks daily and often does not eat. Upon admission she stated her last meal was on 05/01 and that managing food is overwhelming. She feels like she is a burden to others and endorses feeling overwhelmed at work. She has no formal mental health diagnosis, states she has "racing thoughts" and manages these with alcohol. She was admitted with a 1:1 sitter. Yesterday, she was sitting up and playing [place] with her family when I visited her. Her mood appeared improved, she was more interactive, and she laughed at jokes. Today, she appears to have a low mood and is picking at her food. She stated she is no longer feeling suicidal, would not overdose again if she had the bottle of Tylenol right now. This is not her first suicide attempt. She told the nurse that she cut her wrist and received 14 stitches. She states she felt a lot better after eating lunch and we discussed the importance of regular eating. She endorses a willingness to engage in treatment for her mental health, including possible inpatient or outpatient treatment and medications. Currently, her liver function is improving but she is still on NAC, I will defer consideration of anti-depressants until her conditions stabilizes. A tele psych visit was arranged for this afternoon in anticipation of possible discharge tomorrow. (3) Alcohol dependence Impression: States she drink 4-8 "Buzz balls" per day, a canned alcoholic beverage. She also drinks a bottle or two of vodka on the weekend. She endorses drinking for several years daily, usually starting around 1 pm and stopping around 7 pm when she goes to bed. 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 She often does not eat meals, drinking instead, and states her last meal was 05/01 upon admission. She states sometimes she is faced with the choice of buying food or buying alcohol due to her limited income and that she usually chooses alcohol. She reports daily vomiting 1-3x, denies hematemesis or coffee ground emesis. She was initially not open to permanantly quitting but was OK with the idea of pairing drinks with food and water and cutting back. She is on CIWA protocol, her last dose of Ativan was 00:40 yesterday. She does not have tremors, anxiety, agitation, sensory disturbances, or diaphoresis at this time. She will be continued on pre-lin vitamins for nutrient replacement with potassium supplementation. She is now realizing that she may not be able to drink again because of her liver. She is willing to go to rehab if she needs it for her alcohol use. (4) Hypokalemia Impression: Hypokalemia has resolved at 3.5, up from 3.3 yesterday. She received IV potassium replacement on 05/03 along with magnesium. I will monitor her electrolytes daily. (5) Hypomagnesemia Impression: She presented with hypomagnesemia at 1.4, likely due to alcohol dependence. She recieved 2 gm IVPB on 05/03 and it has resolved with her magnesium now 1.8 and her hypomagnesemia is resolved. (6) Hyponatremia Impression: She presented with mild hyponatremia at 133, likely due to decreased PO intake. Her sodium is now 138 and her hyponatremia is resolved. I will encourage her to eat food and continue to monitor electrolytes daily. (7) Hypochloremia Impression: Presented with mild hypochloremia at 97, likely due to decreased PO intake. It has resolved and is currently 103. I will continue to monitor electrolytes daily. (8) Hyperglycemia Impression: Elevated blood glucose at 188 on admission. No hx of DM, likely due to alcohol dependence. A1c was 5.7 ruling out undiagnosed DM and blood glucose is now 110 today. No interventions are needed. I will continue to monitor blood glucose daily along with electrolytes.
[2024-05-06 15:50] LABS: ALBUMIN 3.6 g/dL (3.2-5.5)
[2024-05-06 15:52] LABS: INR 1.7 (0.8-1.2); PT - PROTHROMBIN TIME 18.5 secs (9.9-12.6)
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
[2024-05-06 16:19] LABS: BILIRUBIN,DIRECT 0.41 mg/dL (0.03-0.18); BILIRUBIN,TOTAL 0.8 mg/dL (0.2-1.0); TOTAL PROTEIN 6.1 g/dL (6.4-8.9)
[2024-05-07 00:07] VITALS: O2SAT 97
[2024-05-07 06:08] LABS: WHITE BLOOD COUNT 6.2 x10^3/uL (4.8-10.8)
[2024-05-07 06:10] LABS: BASOPHILS % (AUTO) 0.6 %; EOSINOPHILS # (AUTO) 0.3 10^3/uL (0.0-0.7); EOSINOPHILS % (AUTO) 4.7 %; HCT - HEMATOCRIT 32.6 % (37.0-47.0); HGB - HEMOGLOBIN 10.3 g/dL (12.0-16.0); LYMPHOCYTES # (AUTO) 1.9 10^3/uL (1.5-3.5); LYMPHOCYTES % (AUTO) 30.3 %; MEAN CORPUSCULAR HEMOGLOBIN 26.3 pg (27.0-31.0); MEAN CORPUSCULAR HGB CONC 31.6 g/dL (32.0-36.0); MEAN CORPUSCULAR VOLUME 83.2 fL (81.0-99.0); MEAN PLATELET VOLUME 11.5 fL (7.9-10.8); MONOCYTES # (AUTO) 0.8 10^3/uL (0.0-1.0); MONOCYTES % (AUTO) 12.8 %; NEUTROPHILS # (AUTO) 3.2 10^3/uL (1.5-6.6); NEUTROPHILS % (AUTO) 51.3 %; PLT - PLATELET COUNT 235 10^3/uL (130-450); RED BLOOD COUNT 3.92 10^6/uL (4.20-5.40); RED CELL DISTRIBUTION WIDTH 15.8 % (12.0-15.0)
[2024-05-07 06:24] LABS: ALBUMIN 3.3 g/dL (3.2-5.5)
[2024-05-07 06:35] LABS: BILIRUBIN,DIRECT 0.31 mg/dL (0.03-0.18); BILIRUBIN,TOTAL 0.7 mg/dL (0.2-1.0); TOTAL PROTEIN 5.7 g/dL (6.4-8.9)
[2024-05-07] MEDS: SERTRALINE 25 MG TABLET PO SCH (08:26)
[2024-05-07 08:33] VITALS: BP 130/88
--- NOTE | 2024-05-07 13:31 | Discharge Plan ---
Discharge Plan Problem Reviewed?: Yes Disposition: Home, Self Care Condition: Good Prescriptions: Naltrexone HCl 50 mg PO DAILY #30 tab Sertraline [Zoloft] 12.5 mg PO DAILY #30 tab Diet: Regular Activity Restrictions: No Restrictions Shower Restrictions: No Driving Restrictions: Yes (does not drive at baseline) Weight Bearing: Full Weight Instruction Topics: Alcoholism, Addiction Recovery, Suicide Warning Signs Self, Anxiety Disorder, SSRIs Health Concerns: You came into the hospital about 12 hours after ingesting a bottle of Tylenol. We do not know exactly how much Tylenol you took but we know it is enough to hurt your liver. You are immediately placed on medication to try to protect your liver from the effects of the Tylenol. Your liver enzymes are coming down but they are not at normal levels. Additionally, we see signs that your body is not forming clots normally due to the dysfunction in your liver. Alcohol can also cause problems with your liver. Because of the Tylenol overdose you probably should not drink any alcohol. Additionally, I believe that alcohol was a contributing factor to depression and anxiety you are feeling that caused you to take the bottle of Tylenol. Since coming here to the hospital I think you have learned how much your friends and family truly do care about you. It is important that you remember your plan for safety and how you have many people around you that l love and care for you. You can always reach out to talk to someone. We have started you on an antidepressant medication called sertraline. We are starting you on a low dose, 12.5 mg/day. Your primary care doctor may elect to increase this medication after period of time. We are trying to get you set up with a primary care provider at the [facility]. If for what ever reason this does not work out, do not be afraid to reschedule that appointment. Is im portant that you get care for your depression and anxiety. Care for your depression and anxiety consists of several things. You need to take your medication but you also need the support of those around you. Do not be afraid to reach out. Care for your alcohol addiction is something that you has to go on for the rest of your life. It would be a good idea if you never drink any more alcohol. The process of not drinking alcohol may mean that you need to attend AA meetings. These meetings can be a positive force in your life. They are an opportunity to meet other people and maybe even help someone else who is dealing with an addiction. Plan of Treatment: Treat anxiety and depression. Treat alcohol cravings. reach out to friends and family when you need help. See a primary care doctor Engage with mental health resources. Care Goals: to stay alcohol free and feel good Assessment: If you feel worse, or start to have yellowing of your skin, come back here to the ED. Make sure to make and keep a primary care appointment. No Smoking: If you smoke, Please STOP! Call for help. Follow-up with: Adry Buclkey PA-C [Provider Admit Priv/Credential] -
--- NOTE | 2024-05-07 14:01 | DISCHARGE SUMMARY ---
Discharge Summary Admit Date: 05/03/24 Discharge Date: 05/07/24 Discharging Provider: Iman Lawler PA-C Primary Care Provider: none Code Status: Attempt Resuscitation Condition at Discharge: Good Discharge Disposition: 01 Home, Self Care - DIAGNOSES Admission Diagnoses: intentional acetaminophen overdose Suicide attempt Alcohol dependence Hypokalemia Hypomagnesemia Hyponatremia Hyperglycemia Discharge Diagnoses with Status of Each Condition: 1) Intentional acetaminophen overdose Impression: Ms. Hand states she took a "bottle" of tylenol 500 mg at at 21:00 on 05/03 in a suicide attempt, stating she "just doesn't want to be alive." She told her mother and her mother drove her to the ED where she was found to have a tylenol level of 60.[address] Stewart in the ED consulted with Poison Control who recommended high dose N-acetylcysteine at 20 mg/kg/hr for 24 hrs with a recheck of LFTs and INR. LFTs were elevated with AST of 226 and ALT of 165 and coags mildy elevated with a PT of 14.9 and INR of 1.4. She was admitted to the floor with a 1:1 sitter for active SI and recieved PRN zofran for nausea/vomiting. Today, her AST has decreased to 1,330 while ALT increased to 1330. Her INR is now 1.8 which meets the INR goal. Her T. Bili is now 0.44, decreased from 0.53. She has no subjective complaints and her nausea has resolved. Her exam reveals mild tenderness to palpation RUQ. hepatology was consulted and there is no additional treatment that can be done beyond what is already being done. We discussed her condition and that we are doing everything that can be done to support her liver. N-acetylcysteine can be stopped when she has a decrease in LFTs 25%-50% from their peak and an INR<2. At this point her AST and INR meet goals but her ALT has not yet stabilized. I will recheck labs this afternoon to see if it needs to be continued. Qualifiers: Encounter type: initial encounter Qualified Code(s): T39.1X2A - Poisoning by 4-Aminophenol derivatives, intentional self-harm, initial encounter (2) Suicide attempt Impression: Intentional tylenol OD admitted to the floor with active SI, stated she "just doesn't want to be alive". She has been living alone for the first time since August 2023 and feels overwhelmed. She drinks daily and often does not eat. Upon admission she stated her last meal was on 05/01 and that managing food is overwhelming. She feels like she is a burden to others and endorses feeling overwhelmed at work. She has no formal mental health diagnosis, states she has "racing thoughts" and manages these with alcohol. She was admitted with a 1:1 sitter. Yesterday, she was sitting up and playing [place] with her family when I visited her. Her mood appeared improved, she was more interactive, and she laughed at jokes. Today, she appears to have a low mood and is picking at her food. She stated she is no longer feeling suicidal, would not overdose again if she had the bottle of Tylenol right now. This is not her first suicide attempt. She told the nurse that she cut her wrist and received 14 stitches. She states she felt a lot better after eating lunch and we discussed the importance of regular eating. She endorses a willingness to engage in treatment for her mental health, including possible inpatient or outpatient treatment and medications. Currently, her liver function is improving but she is still on NAC, I will defer consideration of anti-depressants until her conditions stabilizes. A tele psych visit was arranged for this afternoon in anticipation of possible discharge tomorrow. (3) Alcohol dependence Impression: States she drink 4-8 "Buzz balls" per day, a canned alcoholic beverage. She also drinks a bottle or two of vodka on the weekend. She endorses drinking for several years daily, usually starting around 1 pm and stopping around 7 pm when she goes to bed. She works opening shift at [employer] and endorses feeling anxious and shaky by the end of her shift and begins drinking immediately when she gets home. She often does not eat meals, drinking instead, and states her last meal was 05/01 upon admission. She states sometimes she is faced with the choice of buying food or buying alcohol due to her limited income and that she usually chooses alcohol. She reports daily vomiting 1-3x, denies hematemesis or coffee ground emesis. She was initially not open to permanantly quitting but was OK with the idea of pairing drinks with food and water and cutting back. She is on CIWA protocol, her last dose of Ativan was 00:40 yesterday. She does not have tremors, anxiety, agitation, sensory disturbances, or diaphoresis at this time. She will be continued on pre- vitamins for nutrient replacement with potassium supplementation. She is now realizing that she may not be able to drink again because of her liver. She is willing to go to rehab if she needs it for her alcohol use. Depression/Anxiety (4) Hypokalemia Impression: Hypokalemia has resolved at 3.5, up from 3.3 yesterday. She received IV potassiu m replacement on 05/03 along with magnesium. I will monitor her electrolytes daily. (5) Hypomagnesemia Impression: She presented with hypomagnesemia at 1.4, likely due to alcohol dependence. She recieved 2 gm IVPB on 05/03 and it has resolved with her magnesium now 1.8 and her hypomagnesemia is resolved. (6) Hyponatremia Impression: She presented with mild hyponatremia at 133, likely due to decreased PO intake. Her sodium is now 138 and her hyponatremia is resolved. I will encourage her to eat food and continue to monitor electrolytes daily. (7) Hypochloremia Impression: Presented with mild hypochloremia at 97, likely due to decreased PO intake. It has resolved and is currently 103. I will continue to monitor electrolytes daily. (8) Hyperglycemia Impression: Elevated blood glucose at 188 on admission. No hx of DM, likely due to alcohol dependence. A1c was 5.7 ruling out undiagnosed DM and blood glucose is now 110 today. No interventions are needed. I will continue to monitor blood glucose daily along with electrolytes. - ALLERGIES Allergies/Adverse Reactions: Allergies Allergy/AdvReac Type Severity Reaction Status Date / Time No Known Drug Allergies Allergy Verified 05/03/24 09:16 - MEDICATIONS Home Medications: Ambulatory Orders Medication Instructions Recorded Confirmed Melatonin 2 mg PO HS PRN 05/03/24 05/03/24 Naltrexone HCl 50 mg PO DAILY #30 tab 05/07/24 Sertraline [Zoloft] 12.5 mg PO DAILY #30 tab 05/07/24 - LABS Result Diagrams: 05/07/24 05:40 05/06/24 04:47 - SEPSIS Current Stage of Sepsis: Ruled out
== END 2024-05-07 14:30 | disposition home or self-care (01) | DRG 918 ==
LOC: ED 09:10 → MS2 13:17
PROVIDERS: ADMIT Physician Assistant Medical; ATTEND Physician Assistant Medical
DX: T39.1X2A Poisoning by 4-Aminophenol derivatives, intentional self-harm, initial encounter (principal); E87.1 Hypo-osmolality and hyponatremia; R45.851 Suicidal ideations; F10.20 Alcohol dependence, uncomplicated; E87.6 Hypokalemia; E83.42 Hypomagnesemia; R73.9 Hyperglycemia, unspecified; F32.A Depression, unspecified; F41.9 Anxiety disorder, unspecified; E87.8 Other disorders of electrolyte and fluid balance, not elsewhere classified
CPT/HCPCS: 36415; 80053; 80076; 80143; 80179; 80306; 81001; 81025; 82077; 82140; 82248; 83036; 83690; 83735; 84100; 84443; 85025; 85610; 85730; 87635; 99284; 99285; A9270; G0378; J0132; J3411; J8499; 81003; 87086

== ENCOUNTER 2024-05-14 08:54 | Outpatient (CLI) | payer BC ==
[2024-05-14 11:53] LABS: BASOPHILS # (AUTO) 0.1 10^3/uL (0.0-0.1); BASOPHILS % (AUTO) 0.7 %; EOSINOPHILS # (AUTO) 0.2 10^3/uL (0.0-0.7); EOSINOPHILS % (AUTO) 3.1 %; HCT - HEMATOCRIT 40.6 % (37.0-47.0); HGB - HEMOGLOBIN 12.4 g/dL (12.0-16.0); LYMPHOCYTES # (AUTO) 2.2 10^3/uL (1.5-3.5); LYMPHOCYTES % (AUTO) 32.5 %; MEAN CORPUSCULAR HEMOGLOBIN 26.5 pg (27.0-31.0); MEAN CORPUSCULAR HGB CONC 30.5 g/dL (32.0-36.0); MEAN CORPUSCULAR VOLUME 86.8 fL (81.0-99.0); MEAN PLATELET VOLUME 11.8 fL (7.9-10.8); MONOCYTES # (AUTO) 0.5 10^3/uL (0.0-1.0); MONOCYTES % (AUTO) 7.3 %; NEUTROPHILS # (AUTO) 3.8 10^3/uL (1.5-6.6); NEUTROPHILS % (AUTO) 56.3 %; PLT - PLATELET COUNT 449 10^3/uL (130-450); RED BLOOD COUNT 4.68 10^6/uL (4.20-5.40); RED CELL DISTRIBUTION WIDTH 16.4 % (12.0-15.0); WHITE BLOOD COUNT 6.8 x10^3/uL (4.8-10.8)
[2024-05-14 11:56] LABS: INR 1.2 (0.8-1.2); PT - PROTHROMBIN TIME 12.9 secs (9.9-12.6)
[2024-05-14 12:27] LABS: MAGNESIUM 1.7 mg/dL (1.7-2.3)
[2024-05-14 12:30] LABS: ALBUMIN 4.3 g/dL (3.2-5.5); BILIRUBIN,TOTAL 0.5 mg/dL (0.2-1.0); CALCIUM 9.9 mg/dL (8.5-10.3); POTASSIUM 4.5 mmol/L (3.5-4.5)
[2024-05-14 12:33] LABS: ALBUMIN/GLOBULIN RATIO 1.2 (1.0-2.2); CREATININE 0.7 mg/dL (0.6-1.3); TOTAL PROTEIN 7.9 g/dL (6.4-8.9)
[2024-05-14 12:40] LABS: FERRITIN 20.9 ng/mL (11.0-306.8)
== END 2024-05-14 08:55 | disposition home or self-care (01) ==
LOC: LAB.N 08:54
PROVIDERS: ATTEND Physician Assistant Medical
DX: F10.10 Alcohol abuse, uncomplicated (principal)
CPT/HCPCS: 36415; 80053; 82607; 82728; 82746; 83735; 85025; 85610

== ENCOUNTER 2024-06-04 10:14 | Outpatient (CLI) | payer BC ==
[2024-06-04 12:59] LABS: ALBUMIN 4.3 g/dL (3.2-5.5); ALBUMIN/GLOBULIN RATIO 1.3 (1.0-2.2); BILIRUBIN,TOTAL 0.6 mg/dL (0.2-1.0); CALCIUM 9.6 mg/dL (8.5-10.3); CREATININE 0.7 mg/dL (0.6-1.3); TOTAL PROTEIN 7.6 g/dL (6.4-8.9)
== END 2024-06-04 10:15 | disposition home or self-care (01) ==
LOC: LAB.N 10:14
PROVIDERS: ATTEND Physician Assistant Medical
DX: F10.10 Alcohol abuse, uncomplicated (principal)
CPT/HCPCS: 36415; 80053